=== PATIENT | female | born 1930 | race Caucasian/White ===

== ENCOUNTER 2019-04-17 11:24 | Emergency (ER) | payer OTHER, BC ==
[2019-04-17 11:52] VITALS: TEMP 98.2; BMI 19.1
--- NOTE | 2019-04-17 12:00 | PDOC ---
History of Present Illness - General Chief Complaint: Weakness Stated Complaint: WEAKNESS Time Seen by Provider: 04/17/19 11:59 History Source: [facility] Records - History of Present Illness Initial Comments: 04/17/19 15:29 89 y/o woman with hx dementia transferred from [address] [place] [address] [facility] after her nurse found her having difficulty ambulating today, different than her baseline. She is unable to provide history due to dementia - difficulty finding words or formulating thoughts. She is unable to report why she is in the ED (or where her current location is). She denies any pain anywhere. Past History - Past Medical History Allergies/Adverse Reactions: Allergies Allergy/AdvReac Type Severity Reaction Status Date / Time No Known Allergies Allergy Verified 04/17/19 11:44 Home Medications: Ambulatory Orders Ascorbate Calcium [Vitamin C] 1,000 mg PO DAILY 04/17/19 Cyanocobalamin (Vitamin B-12) [Vitamin B12] 1,000 mcg PO DAILY 04/17/19 Vitamin E 400 unit PO DAILY 04/17/19 Cancer: Yes (basal cell carcinoma) COPD: No Dementia: Yes Psychiatric Problems: (cognitive decline) Seizures: Yes (hyperparathyroidsm) Other medical history: Hypercalcemia - Suicide/Smoking/Psychosocial Hx Smoking History: Never smoked Information on smoking cessation initiated: No Hx Alcohol Use: No Drug/Substance Use Hx: No Review of Systems - Review of Systems Able to Perform ROS?: No (Dementia) *Physical Exam - Vital Signs Last Vital Signs Temp Pulse Resp BP Pulse Ox 98.2 F 97 H 18 166/87 98 04/17/19 11:39 04/17/19 11:39 04/17/19 11:39 04/17/19 11:39 04/17/19 11:50 - Physical Exam Comments: 04/17/19 15:24 PE: GENERAL: Awake, anxious, confused, disoriented to place, time. HEAD: No signs of trauma, normocephalic, atraumatic EYES: PERRLA, EOMI, sclera anicteric, conjunctiva clear ENT: Auricles normal inspection, hearing grossly normal, nares patent, oropharynx clear without exudates. Moist mucosa NECK: Normal ROM, supple, no lymphadenopathy, JVD, or masses LUNGS: No distress, speaks full sentences, clear to auscultation bilaterally HEART: Regular rate and rhythm, normal S1 and S2, no murmurs, rubs or gallops, peripheral pulses normal and equal bilaterally. ABDOMEN: Soft, nontender, normoactive bowel sounds. No guarding, no rebound. No masses EXTREMITIES : Normal inspection, Normal range of motion, no edema. No clubbing or cyanosis SKIN: Warm, Dry, normal turgor, no rashes or lesions noted ED Treatment Course - LABORATORY CBC & Chemistry Diagram: 04/17/19 12:40 04/17/19 15:28 Medical Decision Making - Medical Decision Making 89 F with hx dementia transferred from [facility] due to difficulty ambulating worse than baseline, unable to obtain hx from patient due to dementia. Plan for infectious workup, likely admit if cannot ambulate. Plan: CBC CMP UA Urine culture CXR EKG CT Head 04/17/19 12:32 POC glu - 119 --- Case discussed with nurse at [facility] facility. Per nurse, she was unable to ambulate today which was not her norm. No falls or head trauma. Baseline mental status of confusion, normally able to hold conversation but word finding difficulty with anxiety. Plan for CT head, CT neck deferred given lack of traumatic mechanism. 04/17/19 16:57 CT negative for acute process Labs wnl, UA negative, no leukocytosis, no anemia, CXR normal Trial of ambulation - able to walk up/down room with assistance. Plan for repeat vitals, discharge back to [facility]. *DC/Admit/Observation/Transfer Diagnosis at time of Disposition: Unable to ambulate - Discharge Dispostion Disposition: HOME Condition at time of disposition: Stable Decision to Admit order: Yes - Referrals Referrals: Gianluca Briones MD [Primary Care Provider] - - Patient Instructions Printed Discharge Instructions: How to Choose and Use a Walker, Dementia Additional Instructions: You were seen in the emergency department because you were having difficulty walking. We checked your blood work, your urine, and did a CT scan of your head , which all returned normal. We monitored you in the Emergency Department, and after rest you were able to walk here in the Emergency Department. Please follow up with your primary care doctor as soon as possible, in the next seven days. Please return to the Emergency Department if you develop fevers, chills, severe nausea and vomiting, chest pain, or trouble breathing. - Post Discharge Activity
--- NOTE | 2019-04-17 12:52 | PDOC ---
Attending Attestation - Resident Resident Name: Jamari Christianson - ED Attending Attestation I have performed the following: I have examined & evaluated the patient, The case was reviewed & discussed with the resident, I agree w/resident's findings & plan, Exceptions are as noted - HPI HPI: 04/17/19 12:47 89yo F hx dementia, hyperparathyroidism presents to the ED with generalized weakness from [address] [place] [address]. History from staff at [facility]. Pt unable to ambulate but typically can ambulate with one person assistance. Otherwise, they deny any recent f/c, complaints of cp, sob, abd pain, dizziness, N/V/D, urinary sxs. Pt has not had any recent falls. History from pt limited due to dementia, pt denies all medical complaints. - Physicial Exam PE: 04/17/19 12:51 GENERAL: Awake, alert, AOx0 (states full name is Z), in no acute distress HEAD: No signs of trauma EYES: PERRLA, EOMI, sclera anicteric, conjunctiva clear ENT: Auricles normal inspection, hearing grossly normal, nares patent, oropharynx clear without exudates. Moist mucosa NECK: Normal ROM, supple, no lymphadenopathy, JVD, or masses LUNGS: Breath sounds equal, clear to auscultation bilaterally. No wheezes, and no crackles HEART: Regular rate and rhythm, normal S1 and S2, no murmurs, rubs or gallops ABDOMEN: Soft, nontender, normoactive bowel sounds. No guarding, no rebound. No masses EXTREMITIES: Normal range of motion, no edema. No clubbing or cyanosis. No cords, erythema, or tenderness NEUROLOGICAL: Normal speech, cranial nerves intact, 5/5 strength in all 4 extremities, normal sensation to light touch in all 4 extremities, normal cerebellar exam, normal gait, normal reflexes and tone SKIN: Warm, Dry, normal turgor, no rashes or lesions noted. - Medical Decision Making 04/17/19 14:21 89yo F Hx dementia and hyperparathyroidism presents to the ED with generalized weakness Vitals with elevated BP, pt with no hx HTN DDx includes infection vs metabolic disarray vs ischemia vs neurologic event Plan for labs, UA, CTH, dispo 04/17/19 17:00 Entire w/u including labs, UA, CXR, CTH negative Pt continues to deny complaints She is able to ambulate in ED with 1 person assistance which is her baseline BP has decreased to 140s/150s systolic w/o intervention She is clinically stable for DC back to [facility] Heart Score/ECG Review #1 04/17/19 14:19 EKG read and int by me: Sinus rhythm, 1st degree block. LAD. No LINDSEY or TWI.
[2019-04-17 12:58] LABS: BASO % 1.1 % (0-2.0); EOS % 2.6 % (0-4.5); HEMATOCRIT 36.3 % (32.4-45.2); HEMOGLOBIN 12.3 GM/dL (10.7-15.3); LYMPH % 12.7 % (8-40); MCH 34.1 pg (25.7-33.7); MEAN CELL VOLUME 100.3 fl (80-96); MEAN PLT VOLUME 6.6 fl (7.5-11.1); MONO % 11.6 % (3.8-10.2); PLATELET COUNT 325 K/MM3 (134-434); RBC 3.62 M/mm3 (3.60-5.2); RDW 14.4 % (11.6-15.6); WHITE BLOOD COUNT 8.6 K/mm3 (4.0-10.0)
--- NOTE | 2019-04-17 14:52 | EKG ---
Test Reason : Blood Pressure : / mmHG Vent. Rate : 096 BPM Atrial Rate : 096 BPM P-R Int : 222 ms QRS Dur : 088 ms QT Int : 374 ms P-R-T Axes : 076 -30 047 degrees QTc Int : 472 ms SINUS RHYTHM WITH 1ST DEGREE A-V BLOCK LEFT ATRIAL ENLARGEMENT LEFT AXIS DEVIATION POSSIBLE ANTERIOR INFARCT , AGE UNDETERMINED ABNORMAL ECG NO PREVIOUS ECGS AVAILABLE Confirmed by MD FER, LATOYA ([id number]) on 04/17/2019 2:52:30 PM Referred By: Confirmed By:LATOYA MONROE MD
[2019-04-17 16:01] LABS: PH,URINE 7.5 (5.0-8.0); URINE APPEARANCE CLEAR; URINE BILIRUBIN NEGATIVE (NEGATIVE); URINE COLOR YELLOW; URINE GLUCOSE (UA) NEGATIVE (NEGATIVE); URINE KETONE NEGATIVE (NEGATIVE); URINE LEUK ESTERASE NEGATIVE (NEGATIVE); URINE NITRITE NEGATIVE (NEGATIVE); URINE PROTEIN NEGATIVE (NEGATIVE)
[2019-04-17 16:03] LABS: ALBUMIN 3.6 g/dl (3.4-5.0); BILIRUBIN,TOTAL 0.7 mg/dL (0.2-1); BLOOD UREA NITROGEN 8.6 mg/dL (7-18); CALCIUM 11.3 mg/dL (8.5-10.1); CREATININE 0.6 mg/dL (0.55-1.3); POTASSIUM 3.4 mmol/L (3.5-5.1); TOT PROT 6.8 g/dl (6.4-8.2)
[2019-04-17] MEDS ORDERED: VALSARTAN 40 MG TABLET (FP) PO ONE (19:56)
[2019-04-17] MEDS ORDERED: NITROGLYCERIN SUBLINGUAL 1/150 0.4 MG TAB SL ONE (20:05)
--- NOTE | 2019-04-17 20:16 | PDOC ---
*Physical Exam - Vital Signs Last Vital Signs Temp Pulse Resp BP Pulse Ox 98.2 F 90 18 146/104 H 97 04/17/19 11:39 04/17/19 17:05 04/17/19 17:05 04/17/19 17:05 04/17/19 17:05 - Physical Exam General Appearance: Yes: Nourished. 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 NML intact, Fully Oriented, Alert, Normal Mood/ Affect ED Treatment Course - LABORATORY CBC & Chemistry Diagram: 04/17/19 12:40 04/17/19 15:28 - ADDITIONAL ORDERS Additional order review: Laboratory Results 04/17/19 04/17/19 04/17/19 15:50 15:28 12:40 Sodium 140 Cancelled Potassium 3.4 L Cancelled Chloride 101 Cancelled Carbon Dioxide 35 H Cancelled Anion Gap 5 L Cancelled BUN 8.6 Cancelled Creatinine 0.6 Cancelled Est GFR (CKD-EPI)AfAm 94.32 Cancelled Est GFR (CKD-EPI)NonAf 81.38 Cancelled POC Glucometer Random Glucose 104 Cancelled Calcium 11.3 H Cancelled Total Bilirubin 0.7 Cancelled AST 17 Cancelled ALT 19 Cancelled Alkaline Phosphatase 137 H Cancelled Creatine Kinase Troponin I Total Protein 6.8 Cancelled Albumin 3.6 Cancelled Urine Color Yellow Urine Appearance Clear Urine pH 7.5 Ur Specific [place] 1.011 Urine Protein Negative Urine Glucose (UA) Negative Urine Ketones Negative Urine Blood Negative Urine Nitrite Negative Urine Bilirubin Negative Urine Urobilinogen 1.0 Ur Leukocyte Esterase Negative 04/17/19 04/17/19 12:40 12:29 Sodium Potassium Chloride Carbon Dioxide Anion Gap BUN Creatinine Est GFR (CKD-EPI)AfAm Est GFR (CKD-EPI)NonAf POC Glucometer 119 Random Glucose Calcium Total Bilirubin AST ALT Alkaline Phosphatase Creatine Kinase 28 Troponin I < 0.02 Total Protein Albumin Urine Color Urine Appearance Urine pH Ur Specific [place] Urine Protein Urine Glucose (UA) Urine Ketones Urine Blood Urine Nitrite Urine Bilirubin Urine Urobilinogen Ur Leukocyte Esterase 04/17/19 04/17/19 12:40 12:29 RBC 3.62 MCV 100.3 H MCHC 34.0 RDW 14.4 MPV 6.6 L Neutrophils % 72.0 Lymphocytes % 12.7 Monocytes % 11.6 H Eosinophils % 2.6 Basophils % 1.1 POC Glucometer 119 - RADIOLOGY Radiology Studies Ordered: Category Date Time Status CHEST X-RAY PORTABLE* [RAD] Stat Radiology 04/17/19 20:11 Ordered - Medications Given in the ED: ED Medications Discontinued Medications Generic Name Dose Route Start Last Admin Trade Name Freq PRN Reason Stop Dose Admin Valsartan 40 mg 04/17/19 19:56 04/17/19 20:13 Diovan - PO 04/17/19 19:57 40 mg ONCE ONE Administration Medical Decision Making - Medical Decision Making 04/17/19 20:14 Pt awaiting to go to the [facility] and she was found to have BP bilaterally of 200/100 ; pt will get an EKG and I will treat with diovan and she will be reassessed. 04/17/19 22:10 Pt was fed dinner and she is feeling better; diovan and percocet and SL NTG given BP is under control. She will be sent home with a prescription of diovan. *DC/Admit/Observation/Transfer Diagnosis at time of Disposition: Unable to ambulate - Discharge Dispostion Disposition: [facility] Condition at time of disposition: Stable - Referrals Referrals: Gianluca Briones MD [Primary Care Provider] - - Patient Instructions Printed Discharge Instructions: How to Choose and Use a Walker, Dementia Additional Instructions: You were seen in the emergency department because you were having difficulty walking. We checked your blood work, your urine, and did a CT scan of your head , which all returned normal. We monitored you in the Emergency Department, and after rest you were able to walk here in the Emergency Department. Please follow up with your primary care doctor as soon as possible, in the next seven days. Please return to the Emergency Department if you develop fevers, chills, severe nausea and vomiting, chest pain, or trouble breathing. - Post Discharge Activity
[2019-04-17] MEDS ORDERED: NITROGLYCERIN SUBLINGUAL 1/150 0.4 MG TAB ONE (20:37)
[2019-04-17 21:23] VITALS: BP 138/78; PULSE 80
--- NOTE | 2019-04-18 16:58 | EKG ---
Test Reason : Blood Pressure : / mmHG Vent. Rate : 106 BPM Atrial Rate : 106 BPM P-R Int : 178 ms QRS Dur : 082 ms QT Int : 358 ms P-R-T Axes : 061 -16 052 degrees QTc Int : 475 ms SINUS TACHYCARDIA BIATRIAL ENLARGEMENT BORDERLINE ECG WHEN COMPARED WITH ECG OF 17-APR-2019 11:36, ME INTERVAL HAS DECREASED Confirmed by MD FER, LATOYA ([id number]) on 04/18/2019 4:58:14 PM Referred By: Confirmed By:LATOYA MONROE MD
== END 2019-04-18 01:37 ==
LOC: JER 11:24
DX: R26.2 Difficulty in walking, not elsewhere classified (principal); E21.3 Hyperparathyroidism, unspecified; Z85.828 Personal history of other malignant neoplasm of skin
CPT/HCPCS: 36415; 70450-TC; 71045-TC-FY; 80053; 81003; 82550; 82962; 84484; 85025; 87086; 93005; 93010; 99285-25

== ENCOUNTER 2019-04-18 09:00 | Inpatient (IN) | payer OTHER, BC ==
[2019-04-18 10:22] LABS: PH,URINE 6.5 (5.0-8.0); URINE APPEARANCE CLEAR; URINE BILIRUBIN NEGATIVE (NEGATIVE); URINE COLOR YELLOW; URINE GLUCOSE (UA) NEGATIVE (NEGATIVE); URINE KETONE NEGATIVE (NEGATIVE); URINE LEUK ESTERASE NEGATIVE (NEGATIVE); URINE NITRITE NEGATIVE (NEGATIVE); URINE PROTEIN TRACE (NEGATIVE)
[2019-04-18 10:32] LABS: BASO % 0.8 % (0-2.0); EOS % 0.4 % (0-4.5); LYMPH % 12.8 % (8-40); MCH 34.1 pg (25.7-33.7); MCHC 34.2 g/dl (32.0-36.0); MEAN CELL VOLUME 99.8 fl (80-96); MEAN PLT VOLUME 6.9 fl (7.5-11.1); MONO % 9.5 % (3.8-10.2); NEUT % 76.5 % (42.8-82.8); PLATELET COUNT 331 K/MM3 (134-434); RBC 3.81 M/mm3 (3.60-5.2); RDW 14.5 % (11.6-15.6); WHITE BLOOD COUNT 7.5 K/mm3 (4.0-10.0)
[2019-04-18 10:55] LABS: ALBUMIN 3.7 g/dl (3.4-5.0); ALK PHOS 136 U/L (45-117); ANION GAP 6 MMOL/L (8-16); BILIRUBIN,TOTAL 0.8 mg/dL (0.2-1); BLOOD UREA NITROGEN 14.8 mg/dL (7-18); CHLORIDE 99 mmol/L (98-107); CO2 33 mmol/L (21-32); CREATININE 0.8 mg/dL (0.55-1.3); GLUCOSE,RANDOM 111 mg/dL (74-106); MAGNESIUM 2.1 mg/dL (1.8-2.4); N-TERMINAL BNP 272.8 pg/ml (5-450); POTASSIUM 3.9 mmol/L (3.5-5.1); SGOT/AST 24 U/L (15-37); SGPT/ALT 20 U/L (13-61); SODIUM 138 mmol/L (136-145); TOT PROT 7.3 g/dl (6.4-8.2)
[2019-04-18] MEDS ORDERED: SODIUM CHLORIDE 0.9% 1000 ML INFUS.BAG IV ONE (11:01)
--- NOTE | 2019-04-18 11:49 | PDOC ---
Documentation entered by Bobby Bragg SCRIBE, acting as scribe for Dayton Gregg MD. Dayton Gregg MD: This documentation has been prepared by the Yemi harp Daniel, SCRIBE, under my direction and personally reviewed by me in its entirety. I confirm that the documentation accurately reflects all work, treatment, procedures, and medical decision making performed by me. History of Present Illness - General Chief Complaint: Injury Stated Complaint: AMS Time Seen by Provider: 04/18/19 09:18 History Source: Patient, EMS Exam Limitations: No Limitations - History of Present Illness Initial Comments: 04/18/19 09:43 The patient is an 89 year old female with a past medical history of dementia and hyperparathyroidism brought in today by EMS from [facility] for evaluation of unwitnessed fall. The patient was seen in the ER yesterday for generalized weakness, had a negative work up, and was discharged back [facility]. Patient was found this morning at the foot of her bed after an unwitnessed fall and unknown loss of consciousness. Patient has no complaints currently but history is limited due to dementia. Patient aware that she fell but unable to state how or why. Denies fevers, chills, cp, sob, headache, dizziness, abd pain, N/V/D, urinary sxs. Allergies: NKA PCP: Gianluca Briones Past History - Past Medical History Allergies/Adverse Reactions: Allergies Allergy/AdvReac Type Severity Reaction Status Date / Time No Known Allergies Allergy Verified 04/17/19 11:44 Home Medications: Ambulatory Orders Ascorbate Calcium [Vitamin C] 1,000 mg PO DAILY 04/17/19 Cyanocobalamin (Vitamin B-12) [Vitamin B12] 1,000 mcg PO DAILY 04/17/19 Vitamin E 400 unit PO DAILY 04/17/19 Cancer: Yes (basal cell carcinoma) COPD: No Dementia: Yes Psychiatric Problems: (cognitive decline) Seizures: Yes (hyperparathyroidsm) - Suicide/Smoking/Psychosocial Hx Smoking History: Unknown if ever smoked Hx Alcohol Use: No Drug/Substance Use Hx: No Review of Systems - Review of Systems Able to Perform ROS?: No Comments:: 04/18/19 09:43 Limited due to dementia. *Physical Exam - Vital Signs Last Vital Signs Temp Pulse Resp BP Pulse Ox 98.4 F 88 18 165/103 H 95 04/18/19 09:15 04/18/19 09:15 04/18/19 09:15 04/18/19 09:15 04/18/19 09:15 - Physical Exam Comments: 04/18/19 11:10 GENERAL: Lethargic but arousable and oriented to person, in no acute distress HEAD: No signs of trauma EYES: PERRLA, EOMI, sclera anicteric, conjunctiva clear ENT: Auricles normal inspection, hearing grossly normal, nares patent, oropharynx clear without exudates. Moist mucosa NECK: Normal ROM, supple, no lymphadenopathy, JVD, or masses LUNGS: Breath sounds equal, clear to auscultation bilaterally. No wheezes, and no crackles HEART: Regular rate and rhythm, normal S1 and S2, no murmurs, rubs or gallops ABDOMEN: +distended. Nontender, normoactive bowel sounds. No guarding, no rebound. No masses EXTREMITIES: Normal range of motion, no edema. No clubbing or cyanosis. No cords , erythema, or tenderness BACK: No midline spinal tenderness in cervical/thoracic/lumbar region NEUROLOGICAL: Normal speech, cranial nerves intact, 5/5 strength in all 4 extremities, normal sensation to light touch in all 4 extremities, normal cerebellar exam, unable to gait SKIN: Warm, Dry, normal turgor, no rashes or lesions noted. Heart Score/ECG Review #1 04/18/19 11:26 EKG read and int by me: NSR, rate 90, nrml axis and intervals. no darvin or twi ED Treatment Course - LABORATORY CBC & Chemistry Diagram: 04/18/19 10:00 04/18/19 10:00 - ADDITIONAL ORDERS Additional order review: Laboratory Results 04/18/19 04/18/19 10:00 09:45 Sodium 138 Potassium 3.9 Chloride 99 Carbon Dioxide 33 H Anion Gap 6 L BUN 14.8 Creatinine 0.8 Est GFR (CKD-EPI)AfAm 76.29 Est GFR (CKD-EPI)NonAf 65.82 Random Glucose 111 H Calcium 11.0 H Magnesium 2.1 Total Bilirubin 0.8 AST 24 ALT 20 Alkaline Phosphatase 136 H Troponin I < 0.02 B-Natriuretic Peptide 272.8 Total Protein 7.3 Albumin 3.7 Urine Color Yellow Urine Appearance Clear Urine pH 6.5 Ur Specific [place] 1.014 Urine Protein Trace Urine Glucose (UA) Negative Urine Ketones Negative Urine Blood Negative Urine Nitrite Negative Urine Bilirubin Negative Urine Urobilinogen 1.0 Ur Leukocyte Esterase Negative 04/18/19 10:00 RBC 3.81 MCV 99.8 H MCHC 34.2 RDW 14.5 MPV 6.9 L Neutrophils % 76.5 Lymphocytes % 12.8 Monocytes % 9.5 Eosinophils % 0.4 D Basophils % 0.8 - RADIOLOGY Radiology Studies Ordered: Category Date Time Status ABDOMEN & PELVIS CT WITH CONTR [CT] Stat CT Scan 04/18/19 11:10 Ordered CHEST X-RAY PORTABLE* [RAD] Stat Radiology 04/18/19 09:37 Completed PELVIS [RAD] Stat Radiology 04/18/19 09:37 Completed Medical Decision Making - Medical Decision Making 04/18/19 11:46 89yo F presents to the ED for the second time in 2 days, yesterday with generalized weaknes, today after an unwitnessed fall Labs today with mild hypercalcemia -> ordered fluid bolus CXR with possible ileus CTH, C-spine, pelvis film negative Given mild distension on exam, and ileus on CXR, ordered CTAP for further evaluation Anticipate admission 04/18/19 15:29 W/U negative Case discussed with Dr. Nuñez, pt accepted for admission to Dr. Johnston Case discussed in detail with admitting physician including history, physical exam and ancillary studies. Admitting physician has assumed care for the patient, will follow all pending diagnostics and will complete the evaluation and treatment. *DC/Admit/Observation/Transfer Diagnosis at time of Disposition: Weakness - Discharge Dispostion Condition at time of disposition: Stable Decision to Admit order Date/Time: Decision to Admit Order Category Date Time Status Decision to Admit to Hospital Routine Admission 04/18/19 09:37 Active - Referrals Referrals: Gianluca Briones MD [Primary Care Provider] - - Patient Instructions - Post Discharge Activity - Attestations Physician Attestion: 04/18/19 15:31 I, Dr. Dayton Gregg MD, attest that this document has been prepared under my direction and personally reviewed by me in its entirety. I further attest, that it accurately reflects all work, treatment, procedures and medical decision -making performed by me.
--- NOTE | 2019-04-18 16:42 | EKG ---
Test Reason : Blood Pressure : / mmHG Vent. Rate : 090 BPM Atrial Rate : 090 BPM P-R Int : 198 ms QRS Dur : 082 ms QT Int : 370 ms P-R-T Axes : 064 002 056 degrees QTc Int : 452 ms NORMAL SINUS RHYTHM BIATRIAL ENLARGEMENT ABNORMAL ECG WHEN COMPARED WITH ECG OF 17-APR-2019 20:41, NO SIGNIFICANT CHANGE WAS FOUND Confirmed by MD FER, LATOYA ([id number]) on 04/18/2019 4:41:44 PM Referred By: Confirmed By:LATOYA MONROE MD
--- NOTE | 2019-04-18 16:53 | HP ---
CHIEF COMPLAINT: syncopal episode, unwitnessed PCP: Gianluca Briones HISTORY OF PRESENT ILLNESS: Ms. Hernández is an 89 year old woman with a pmhx of parahyperthyroidism and dementia who presents to the ED from her assisted living facility s/p unwitnessed fall. It is unknown whether the patient lost consciousness and the patient is a poor historian. Per [facility] assisted living facility, the patient previously had a wrist fracture for which she was hospitalized. She was sent to rehab after the fracture and then was transferred to them. Previously she had been living on her own. They state that she has no family, but according to the patient's friends she does not take any medications. Per the patient she does not have any medical history and only takes supplements. The patient is, however, only alert and oriented to self and has difficulty recalling where she is, why she was brought to the hospital, where she lives, the date etc. The patient denies feeling dizzy, fainting, losing consciousness, or falling. Per her assisted living facility, she has been unsteady for a while and seeing PT but does not yet have a walker. They state that when they found her she was bracing/ holding her R leg but did not complain of any pain. ER course was notable for: (1) EKG with NSR, no ST elevations or Twave inversions (2) UA negative (3) Head CT, cervical spine CT, CXR, hip/ pelvis XR > no acute pathology or fractures, Abd/ pelvis CT> distended loops of bowel with colonic wall thickening. Recent Travel: denies PAST MEDICAL HISTORY: dementia, parahyperthyroidism PAST SURGICAL HISTORY: patient denies but has surgical scar on R wrist, per [facility] she had R wrist fx Social History: Smoking: denies Alcohol: denies Drugs: denies Family History: none reported Allergies No Known Allergies Allergy (Verified 04/17/19 11:44) HOME MEDICATIONS: Home Medications Medication Instructions Recorded Ascorbate Calcium [Vitamin C] 1,000 mg PO DAILY 04/17/19 Cyanocobalamin (Vitamin B-12) 1,000 mcg PO DAILY 04/17/19 [Vitamin B12] Vitamin E 400 unit PO DAILY 04/17/19 REVIEW OF SYSTEMS - Denies any symptoms on ROS CONSTITUTIONAL: Absent: fever, chills, diaphoresis, generalized weakness, malaise, loss of appetite, weight change HEENT: Absent: rhinorrhea, nasal congestion, throat pain, throat swelling, difficulty swallowing, mouth swelling, ear pain, eye pain, visual changes CARDIOVASCULAR: Absent: chest pain, syncope, palpitations, irregular heart rate, lightheadedness , peripheral edema RESPIRATORY: Absent: cough, shortness of breath, dyspnea with exertion, orthopnea, wheezing, stridor, hemoptysis GASTROINTESTINAL: Absent: abdominal pain, abdominal distension, nausea, vomiting, diarrhea, constipation, melena, hematochezia GENITOURINARY: Absent: dysuria, frequency, urgency, hesitancy, hematuria, flank pain, genital pain MUSCULOSKELETAL: Absent: myalgia, arthralgia, joint swelling, back pain, neck pain SKIN: Absent: rash, itching, pallor HEMATOLOGIC/IMMUNOLOGIC: Absent: easy bleeding, easy bruising, lymphadenopathy, frequent infections ENDOCRINE: Absent: unexplained weight gain, unexplained weight loss, heat intolerance, cold intolerance NEUROLOGIC: Absent: headache, focal weakness or paresthesias, dizziness, unsteady gait, seizure, mental status changes, bladder or bowel incontinence PSYCHIATRIC: Absent: anxiety, depression, suicidal or homicidal ideation, hallucinations. PHYSICAL EXAMINATION Vital Signs - 24 hr 04/18/19 04/18/19 04/18/19 09:15 12:49 16:10 Temperature 98.4 F 98 F 97.8 F Pulse Rate 88 Pulse Rate [ 94 H 82 Apical] Respiratory 18 18 18 Rate Blood Pressure 165/103 H Blood Pressure 154/89 158/89 [Left Arm] O2 Sat by Pulse 95 95 98 Oximetry (%) GENERAL: Awake, alert, oriented only to self, comfortable without signs of trauma HEAD: Normal with no signs of trauma. EYES: Pupils equal, round and reactive to light, extraocular movements intact, sclera anicteric, conjunctiva clear. No lid lag. EARS, NOSE, THROAT: Ears normal, nares patent, oropharynx clear without exudates. Dry mucous membranes. NECK: Normal range of motion, supple without lymphadenopathy, JVD, or masses. LUNGS: Breath sounds equal, clear to auscultation bilaterally. No wheezes, and no crackles. No accessory muscle use. HEART: Regular rate and rhythm, normal S1 and S2 without murmur, rub or gallop. ABDOMEN: Soft, nontender, mildly distended, normoactive bowel sounds, no guarding, no rebound, no masses. MUSCULOSKELETAL: Normal range of motion at all joints. No bony deformities or tenderness. UPPER EXTREMITIES: 2+ pulses, warm, well-perfused. No cyanosis. No clubbing. No peripheral edema. LOWER EXTREMITIES: 2+ pulses, warm, well-perfused. No calf tenderness. No peripheral edema. NEUROLOGICAL: Cranial nerves II-XII intact. Normal speech. Gait not observed. Bilateral arm tremor noted with arms outstretched, worse with intentional movement, not present at rest. 4/5 strength throughout upper and lower extremities. PSYCHIATRIC: Cooperative. Good eye contact. Appropriate mood and affect. SKIN: Warm, dry, normal turgor, no rashes or lesions noted, normal capillary refill. Laboratory Results - last 24 hr 04/18/19 04/18/19 04/18/19 09:45 10:00 10:00 WBC 7.5 RBC 3.81 Hgb 13.0 Hct 38.0 MCV 99.8 H MCH 34.1 H MCHC 34.2 RDW 14.5 Plt Count 331 MPV 6.9 L Absolute Neuts (auto) 5.8 Neutrophils % 76.5 Lymphocytes % 12.8 Monocytes % 9.5 Eosinophils % 0.4 D Basophils % 0.8 Nucleated RBC % 0 Sodium 138 Potassium 3.9 Chloride 99 Carbon Dioxide 33 H Anion Gap 6 L BUN 14.8 Creatinine 0.8 Est GFR (CKD-EPI)AfAm 76.29 Est GFR (CKD-EPI)NonAf 65.82 Random Glucose 111 H Calcium 11.0 H Magnesium 2.1 Total Bilirubin 0.8 AST 24 ALT 20 Alkaline Phosphatase 136 H Troponin I < 0.02 B-Natriuretic Peptide 272.8 Total Protein 7.3 Albumin 3.7 Urine Color Yellow Urine Appearance Clear Urine pH 6.5 Ur Specific Isom 1.014 Urine Protein Trace Urine Glucose (UA) Negative Urine Ketones Negative Urine Blood Negative Urine Nitrite Negative Urine Bilirubin Negative Urine Urobilinogen 1.0 Ur Leukocyte Esterase Negative ASSESSMENT/PLAN: drake Hernández is an 89 year old woman with a pmhx of parahyperthyroidism and dementia who presents to the ED from her assisted living facility s/p unwitnessed fall, she is being admitted for syncopal workup. # Syncope- EKG unremarkable, troponin's negative, imaging without any evidence of acute pathology (CT head without infarct or bleed, no fracture of hip or spine) - admit to tele for cardiac monitoring, patient does not have history of afib or arrhythmias however medical record is sparse and inconsistent as patient is poor historian - F/U repeat troponins - Echo - Carotid doppler study - Orthostatic BPs - Gentle hydration with NS @ 42cc/hr -PT consult #FEN NS @42cc/hr Replete lytes PRN Regular Diet #Dispo - pending cardiac workup, PT assessment, will likely need walker when she returns to assisted living facility Visit type - Emergency Visit Emergency Visit: Yes ED Registration Date: 04/18/19 Care time: The patient presented to the Emergency Department on the above date and was hospitalized for further evaluation of their emergent condition. - New Patient This patient is new to me today: Yes Date on this admission: 04/18/19 - Critical Care Critical Care patient: No ATTENDING PHYSICIAN STATEMENT I saw and evaluated the patient. I reviewed the resident's note and discussed the case with the resident. I agree with the resident's findings and plan as documented. SUBJECTIVE: OBJECTIVE: ASSESSMENT AND PLAN:
--- NOTE | 2019-04-18 18:24 | PN ---
Teaching Attending Note Name of Resident: Flor Singh ATTENDING PHYSICIAN STATEMENT I saw and evaluated the patient. I reviewed the resident's note and discussed the case with the resident. I agree with the resident's findings and plan as documented. SUBJECTIVE: Patient is an 89 year old female with a pmhx of parahyperthyroidism and dementia with hx of wrist fx who presents to the ED from her assisted [facility] facility [facility] s/p unwitnessed fall) patient is a poor historian , does not know what happened. As per [facility] patient has been living in their facility for around 2 months. OBJECTIVE: Vital Signs Temperature 97.8 F 04/18/19 16:10 Pulse Rate 82 04/18/19 16:10 Respiratory Rate 18 04/18/19 16:10 Blood Pressure 158/89 04/18/19 16:10 O2 Sat by Pulse Oximetry (%) 98 04/18/19 16:10 GENERAL: The patient is awake, oriented to self only , in no acute distress. HEAD: Normal with no signs of trauma. EYES: PERRL, extraocular movements intact, sclera anicteric, conjunctiva clear. ENT: Ears normal, oropharynx clear without exudates, moist mucous membranes. NECK: Trachea midline, full range of motion, supple. LUNGS: Breath sounds equal, clear to auscultation bilaterally, no wheezes, no crackles, no accessory muscle use. HEART: Regular rate and rhythm, S1, S2 without murmur, rub or gallop. ABDOMEN: Soft, nontender, nondistended, normoactive bowel sounds, no guarding, no rebound, no hepatosplenomegaly, no masses. EXTREMITIES: 2+ pulses, warm, well-perfused, no edema. NEUROLOGICAL: Cranial nerves II through XII grossly intact. Normal speech, gait not observed. p 5/5 bl PSYCH: Normal mood, normal affect. oriented to self only SKIN: Warm, dry, normal turgor, no rashes or lesions noted CBCD WBC 7.5 K/mm3 (4.0-10.0) 04/18/19 10:00 RBC 3.81 M/mm3 (3.60-5.2) 04/18/19 10:00 Hgb 13.0 GM/dL (10.7-15.3) 04/18/19 10:00 Hct 38.0 % (32.4-45.2) 04/18/19 10:00 MCV 99.8 fl (80-96) H 04/18/19 10:00 MCHC 34.2 g/dl (32.0-36.0) 04/18/19 10:00 RDW 14.5 % (11.6-15.6) 04/18/19 10:00 Plt Count 331 K/MM3 (134-434) 04/18/19 10:00 MPV 6.9 fl (7.5-11.1) L 04/18/19 10:00 CMP Sodium 138 mmol/L (136-145) 04/18/19 10:00 Potassium 3.9 mmol/L (3.5-5.1) 04/18/19 10:00 Chloride 99 mmol/L (98-107) 04/18/19 10:00 Carbon Dioxide 33 mmol/L (21-32) H 04/18/19 10:00 Anion Gap 6 MMOL/L (8-16) L 04/18/19 10:00 BUN 14.8 mg/dL (7-18) 04/18/19 10:00 Creatinine 0.8 mg/dL (0.55-1.3) 04/18/19 10:00 Random Glucose 111 mg/dL (74-106) H 04/18/19 10:00 Calcium 11.0 mg/dL (8.5-10.1) H 04/18/19 10:00 Total Bilirubin 0.8 mg/dL (0.2-1) 04/18/19 10:00 AST 24 U/L (15-37) 04/18/19 10:00 ALT 20 U/L (13-61) 04/18/19 10:00 Alkaline Phosphatase 136 U/L (45-117) H 04/18/19 10:00 Total Protein 7.3 g/dl (6.4-8.2) 04/18/19 10:00 Albumin 3.7 g/dl (3.4-5.0) 04/18/19 10:00 CARDIAC ENZYMES Troponin I < 0.02 ng/ml (0.00-0.05) 04/18/19 10:00 Current Medications Generic Name Dose Route Start Last Admin Trade Name Freq PRN Reason Stop Dose Admin Heparin Sodium (Porcine) 5,000 unit 04/18/19 22:00 Heparin - SQ TID [facility] Sodium Chloride 1,000 mls @ 42 mls/hr 04/18/19 16:45 Normal Saline - IV ASDIR [facility] Home Medications Medication Instructions Recorded Ascorbate Calcium [Vitamin C] 1,000 mg PO DAILY 04/17/19 Cyanocobalamin (Vitamin B-12) 1,000 mcg PO DAILY 04/17/19 [Vitamin B12] Vitamin E 400 unit PO DAILY 04/17/19 CT abdomen and pelvis: mild to moderate colonic distention . no gross obstruction, questionable mild concentric rectal wall thickening. possible acute proctitis. ASSESSMENT AND PLAN: Patient is 89 year old woman with a pmhx of parahyperthyroidism and dementia , wrist fx who presents to the ED from her assisted living facility s/p unwitnessed fall, she is being admitted for syncopal workup. # Syncope r/o acs , carotids, ekg, Ct of the head neg, no infarct or bleed. observe in tele , orthostatics , r/o uTI , patient is oriented to self only # Acute Hypercalcemia with hx of Hyperparathyroidism , gentle hydration # Htn Uncontrolled will monitor # Elevated MCV, will order, TSH,Ft4,Ft3, b12, folic acid. PT evaluation DVt px: heparin sq
[2019-04-18 18:26] VITALS: BMI 16.6
[2019-04-18] MEDS: SODIUM CHLORIDE 1,000 ML IV SCH (22:12)
[2019-04-18] MEDS: HEPARIN NA (PORCINE) 5,000 UNITS/ML 1ML VIAL SQ SCH (22:12)
[2019-04-19] MEDS: HEPARIN NA (PORCINE) 5,000 UNITS/ML 1ML VIAL SQ SCH ×3 (06:34→21:25)
[2019-04-19 06:55] LABS: BASO % 1.3 % (0-2.0); EOS % 3.8 % (0-4.5); HEMATOCRIT 34.5 % (32.4-45.2); HEMOGLOBIN 11.6 GM/dL (10.7-15.3); LYMPH % 26.7 % (8-40); MCH 34.2 pg (25.7-33.7); MCHC 33.7 g/dl (32.0-36.0); MEAN CELL VOLUME 101.4 fl (80-96); MEAN PLT VOLUME 7.2 fl (7.5-11.1); MONO % 11.8 % (3.8-10.2); NEUT % 56.4 % (42.8-82.8); PLATELET COUNT 306 K/MM3 (134-434); RDW 14.1 % (11.6-15.6); WHITE BLOOD COUNT 6.2 K/mm3 (4.0-10.0)
[2019-04-19 07:49] LABS: ALBUMIN 3.3 g/dl (3.4-5.0); BILIRUBIN,TOTAL 0.7 mg/dL (0.2-1); BLOOD UREA NITROGEN 19.3 mg/dL (7-18); CALCIUM 10.9 mg/dL (8.5-10.1); CREATININE 0.9 mg/dL (0.55-1.3); MAGNESIUM 2.1 mg/dL (1.8-2.4); PHOSPHOROUS 2.6 mg/dL (2.5-4.9); POTASSIUM 3.3 mmol/L (3.5-5.1); TOT PROT 6.3 g/dl (6.4-8.2)
--- NOTE | 2019-04-19 08:54 | CON.CARD ---
Consult Consult Specialty:: cardio - History of Present Illness Chief Complaint: fall History of Present Illness: 89 F found on floor. dementia confounds history--unknown mechanism, unknown if fall vs LOC . currently states she cannot recall any of those events. currently denies cp, sob, palpitations, presyncope/LH/dizzy bp elevated, VSs otherwise unremarkable. denies prior h/o hi BP or rec for bp meds by MDs PMH: hyperparathyroid - Alcohol/Substance Use Hx Alcohol Use: No - Smoking History Smoking history: Unknown if ever smoked Home Medications - Allergies Allergies/Adverse Reactions: Allergies Allergy/AdvReac Type Severity Reaction Status Date / Time No Known Allergies Allergy Verified 04/17/19 11:44 - Home Medications Home Medications: Ambulatory Orders Ascorbate Calcium [Vitamin C] 1,000 mg PO DAILY 04/17/19 Cyanocobalamin (Vitamin B-12) [Vitamin B12] 1,000 mcg PO DAILY 04/17/19 Vitamin E 400 unit PO DAILY 04/17/19 Family Disease History - Family Disease History Family History: Denies (no known cmp) Review of Systems - Review of Systems Constitutional: denies: Chills, Fever Eyes: denies: Eye Pain HENT: denies: Nasal Congestion Neck: denies: Stiffness Cardiovascular: denies: Palpitations Respiratory: denies: Orthopnea, PND Gastrointestinal: denies: Diarrhea, Rectal Bleeding Genitourinary: denies: Burning, Hematuria Musculoskeletal: denies: Muscle Pain Integumentary: denies: Rash Neurological: denies: Numbness, Seizure, Syncope Endocrine: denies: Excessive Sweating Hematology/Lymphatic: denies: Excessive Bleeding Vital Signs: Vital Signs Temperature 98.0 F 04/19/19 06:00 Pulse Rate 81 04/19/19 07:29 Respiratory Rate 20 04/19/19 06:00 Blood Pressure 173/60 H 04/19/19 07:29 O2 Sat by Pulse Oximetry (%) 94 L 04/19/19 00:39 Constitutional: Yes: Well Nourished, No Distress Eyes: No: Sclera Icterus HENT: No: Nasal Congestion Neck: No: Decreased ROM Respiratory: Yes: CTA Bilaterally. No: Accessory Muscle Use, Rales, Wheezes Gastrointestinal: Yes: Normal Bowel Sounds. No: Distention, Hepatomegaly, Palpable Mass, Tenderness Cardiovascular: Yes: Regular Rate and Rhythm JVD: No Carotid Bruit: Yes PMI: Non-Displaced Heart Sounds: Yes: S1, S2. No: Gallop Murmur: Yes: Systolic Murmur (2/6 early DAISY lusb). No: Diastolic Murmur Musculoskeletal: Yes: Other (No kyphosis) Extremities: No: Cool, Cyanosis Edema: No Peripheral Pulses: 2+ Left Carotid, 2+ Right Carotid, 2+ Left Doralis Pedis, 2+ Right Dorsalis Pedis Integumentary: No: Jaundice Neurological: Yes: Alert. No: Seizure Psychiatric: No: Agitated - Other Data Labs, Other Data: CBC, BMP 04/19/19 05:15 04/19/19 05:15 Troponin, BNP 04/18/19 04/18/19 10:00 19:05 Troponin I < 0.02 < 0.02 B-Natriuretic Peptide 272.8 Troponin, BNP 04/18/19 04/18/19 10:00 19:05 Troponin I < 0.02 < 0.02 B-Natriuretic Peptide 272.8 Assessment/Plan ECG x3: NSR, RG, no path q's or ischemic ST-T abn CXR: clear lungs/pleura tele: NSR fall vs syncope: -details of history not available sec to dementia -per d/w pmd, she had known fall with wrist frx (? triped on uneven surfact) -CT head no acute findings -trop neg x 2, ecg non-ischemic -supine to seated bp's here: no drop -check orthostatics when/if can stand (ok to do with assistance) -check echo (cardiomegaly reported on CXR, atrial enlargement on ecg) -left carotid bruit likely transmitted from AV area flow murmur. carotid dopplers mild athero, no stenosis -tele monitoring HTN: -per d/w pmd, office bp's 140s-160s/80s-90s, pt has declined meds -sees functional medicine PMD (dr calderon) -will target <160/90 for now, observe trend
[2019-04-19] MEDS ORDERED: POTASSIUM CHLORIDE TABS 20 MEQ TABLET.ER (FP) PO ONE (09:00)
--- NOTE | 2019-04-19 15:01 | ECHO ---
Name: LUIS ANTONIO NANCE Exam:Adult Echocardiogram Study Date: 04/19/2019 11:20 AM Age: 89 yrs Reason For Study: SYNCOPE Height: 60 in Weight: 94 lb BSA: 1.4 m2 MMode/2D Measurements & Calculations IVSd: 0.92 cm Ao root diam: 2.6 cm LVIDd: 2.8 cm LA dimension: 2.5 cm LVIDs: 1.8 cm LVPWd: 1.0 cm LVPWs: 1.0 cm EDV(Teich): 28.3 ml ESV(Teich): 9.5 ml LVOT diam: 1.9 cm RV S Michael: 15.9 cm/sec Doppler Measurements & Calculations MV E max michael: 66.1 cm/sec MVA(VTI): 2.4 cm2 MV A max michael: 132.3 cm/sec MV V2 max: 177.1 cm/sec MV E/A: 0.50 MV max P.6 mmHg MV dec time: 0.18 sec MV V2 mean: 93.4 cm/sec MV mean P.5 mmHg MV V2 VTI: 25.9 cm Ao V2 max: 167.6 cm/sec LV V1 max P.7 mmHg Ao max P.2 mmHg LV V1 mean P.0 mmHg Ao V2 mean: 120.4 cm/sec LV V1 max: 96.3 cm/sec Ao mean P.6 mmHg LV V1 mean: 68.4 cm/sec Ao V2 VTI: 33.7 cm LV V1 VTI: 22.6 cm HAILEE(I,D): 1.9 cm2 HAILEE(V,D): 1.6 cm2 SV(LVOT): 62.7 ml TR max michael: 236.9 cm/sec TR max P.5 mmHg RVSP(TR): 32.5 mmHg PA V2 max: 93.0 cm/sec Med Peak E' Michael: 4.9 cm/sec PA max P.5 mmHg Med E/e': 13.6 Lat Peak E' Michael: 7.0 cm/sec Lat E/e': 9.4 RAP systole: 10.0 mmHg Procedure A complete two-dimensional transthoracic echocardiogram was performed (2D, M-mode, Doppler and color flow Doppler). Technically limited study. Left Ventricle The left ventricle is normal in size. Left ventricular systolic function is normal. Ejection Fraction = 60- 65%. Grade I diastolic dysfunction, (abnormal relaxation pattern). Ratio E/E'= 13. No regional wall m otion abnormalities noted. Right Ventricle The right ventricle is normal size. The right ventricular systolic function is normal. RV systolic TD I is 16 cm/s. Atria The left atrial size is normal. Right atrial size is normal. Mitral Valve There is moderate mitral annular calcification. There is mild mitral regurgitation. Tricuspid Valve The tricuspid valve is normal in structure and function. There is mild to moderate tricuspid regurgit ation. Pulmonary artery systolic pressure is at least 27 mmHg if RA pressure is assumed 3 mmHg. Aortic Valve There is mild aortic sclerosis.;. Trace to mild aortic regurgitation. Pulmonic Valve The pulmonic valve is not well visualized. Great Vessels The aortic root is normal size. Pericardium/Pleura There is no pericardial effusion. Interpretation Summary Technically limited study The left ventricle is normal in size. Left ventricular systolic function is normal. No regional wall motion abnormalities noted. Ejection Fraction = 60-65%. Grade I diastolic dysfunction, (abnormal relaxation pattern). Ratio E/E'= 13 c/w normal filling pressure The right ventricular systolic function is normal. The left atrial size is normal. Right atrial size is normal. There is moderate mitral annular calcification. There is mild mitral regurgitation. There is mild to moderate tricuspid regurgitation. Pulmonary artery systolic pressure is at least 27 mmHg if RA pressure is assumed 3 mmHg There is mild aortic sclerosis. Trace to mild aortic regurgitation. There is no pericardial effusion. Skip Howe MD 04/19/2019 03:00 PM
--- NOTE | 2019-04-19 15:07 | PN ---
Physical Exam: SUBJECTIVE: Patient seen and examined at the bedside, AOX2 to self and reason for hospitalization. The patient is still forgetful and confused. Did not get out of bed, still denies any pain from her fall. OBJECTIVE: Vital Signs Period Temp Pulse Resp BP Sys/Lowe Pulse Ox Last 24 Hr 97.8 F-98.8 F 61-93 16-20 146-187/60-93 94-98 GENERAL: Awake, alert, oriented only to self, comfortable without signs of trauma HEAD: Normal with no signs of trauma. EYES: Pupils equal, round and reactive to light, extraocular movements intact, sclera anicteric, conjunctiva clear. No lid lag. EARS, NOSE, THROAT: Ears normal, nares patent, oropharynx clear without exudates. Dry mucous membranes. NECK: Normal range of motion, supple without lymphadenopathy, JVD, or masses. LUNGS: Breath sounds equal, clear to auscultation bilaterally. No wheezes, and no crackles. No accessory muscle use. HEART: Regular rate and rhythm, normal S1 and S2 without murmur, rub or gallop. ABDOMEN: Soft, nontender, mildly distended, normoactive bowel sounds, no guarding, no rebound, no masses. MUSCULOSKELETAL: Normal range of motion at all joints. No bony deformities or tenderness. UPPER EXTREMITIES: 2+ pulses, warm, well-perfused. No cyanosis. No clubbing. No peripheral edema. LOWER EXTREMITIES: 2+ pulses, warm, well-perfused. No calf tenderness. No peripheral edema. NEUROLOGICAL: Cranial nerves II-XII intact. Normal speech. Gait not observed. Bilateral arm tremor noted with arms outstretched, worse with intentional movement, not present at rest. 4/5 strength throughout upper and lower extremities. PSYCHIATRIC: Cooperative. Good eye contact. Appropriate mood and affect. SKIN: Warm, dry, normal turgor, no rashes or lesions noted, normal capillary refill. Laboratory Results - last 24 hr 04/18/19 04/19/19 04/19/19 19:05 05:15 05:15 WBC 6.2 RBC 3.40 L Hgb 11.6 Hct 34.5 MCV 101.4 H MCH 34.2 H MCHC 33.7 RDW 14.1 Plt Count 306 MPV 7.2 L Absolute Neuts (auto) 3.5 Neutrophils % 56.4 D Lymphocytes % 26.7 D Monocytes % 11.8 H Eosinophils % 3.8 D Basophils % 1.3 Nucleated RBC % 0 Sodium 142 Potassium 3.3 L Chloride 102 Carbon Dioxide 33 H Anion Gap 6 L BUN 19.3 H Creatinine 0.9 Est GFR (CKD-EPI)AfAm 66.16 Est GFR (CKD-EPI)NonAf 57.09 Random Glucose 95 Calcium 10.9 H Phosphorus 2.6 Magnesium 2.1 Total Bilirubin 0.7 AST 19 ALT 16 Alkaline Phosphatase 119 H Troponin I < 0.02 Total Protein 6.3 L Albumin 3.3 L Vitamin B12 617 Serum Folate 20 H TSH 0.91 Free T4 1.11 Active Medications Generic Name Dose Route Start Last Admin Trade Name Freq PRN Reason Stop Dose Admin Heparin Sodium (Porcine) 5,000 unit 04/18/19 22:00 04/19/19 13:14 Heparin - SQ 5,000 unit TID HUSSEIN Administration Sodium Chloride 1,000 mls @ 42 mls/hr 04/18/19 16:45 04/18/19 22:12 Normal Saline - IV 42 mls/hr ASDIR HUSSEIN Administration Metoprolol Tartrate 12.5 mg 04/20/19 10:00 Lopressor - PO DAILY HUSSEIN ASSESSMENT/PLAN: Ms. Hernández is an 89 year old woman with a pmhx of parahyperthyroidism and dementia who presents to the ED from her assisted living facility s/p unwitnessed fall, she is being admitted for syncopal workup. # Syncope- EKG unremarkable, troponin's negativex2, imaging without any evidence of acute pathology (CT head without infarct or bleed, no fracture of hip or spine) - admit to tele for cardiac monitoring, patient does not have history of afib or arrhythmias however medical record is sparse and inconsistent as patient is poor historian -attempted orthostatics today, however unable to complete as patient could not stand, will reattempt tomorrow after PT evaluates her. Supine to sitting, no significant drop in BP - F/U Echo - Carotid doppler study showing mild atherosclerosis without any significant stenosis - Gentle hydration with NS @ 42cc/hr -PT consult -cont tele monitoring #HTN - Pt hypertensive since admission, states she does not take any medications at home - started valsartan 80mg PO daily - will target <160/90 for now, observe trend #FEN NS @42cc/hr Replete lytes PRN Regular Diet #Dispo - pending cardiac workup, PT assessment, will likely need walker when she returns to assisted living facility Visit type - Emergency Visit Emergency Visit: Yes ED Registration Date: 04/18/19 Care time: The patient presented to the Emergency Department on the above date and was hospitalized for further evaluation of their emergent condition. - New Patient This patient is new to me today: No - Critical Care Critical Care patient: No - Discharge Referral Referred to [facility] Med P.C[facility] No ATTENDING PHYSICIAN STATEMENT I saw and evaluated the patient. I reviewed the resident's note and discussed the case with the resident. I agree with the resident's findings and plan as documented. SUBJECTIVE: OBJECTIVE: ASSESSMENT AND PLAN:
[2019-04-19] MEDS ORDERED: METOPROLOL TARTRATE 25 MG TABLET (FP) PO ONE (15:08)
[2019-04-19] MEDS ORDERED: VALSARTAN 80 MG TABLET (UD) PO SCH ×2 (15:15→17:32)
[2019-04-19] MEDS ORDERED: hydrALAZINE HCL 25 MG TABLET (FP) PO ONE (17:31)
[2019-04-19] MEDS ORDERED: hydrALAZINE HCL 25 MG TABLET (FP) PO PRN (17:32)
[2019-04-19] MEDS: SODIUM CHLORIDE 1,000 ML IV SCH (19:26)
[2019-04-19] MEDS ORDERED: amLODIPine BESYLATE 5 MG TABLET (FP) PO SCH (19:45)
--- NOTE | 2019-04-19 21:34 | PN ---
Teaching Attending Note Name of Resident: Flor Singh ATTENDING PHYSICIAN STATEMENT I saw and evaluated the patient. I reviewed the resident's note and discussed the case with the resident. I agree with the resident's findings and plan as documented. SUBJECTIVE: Patient is comfortable but confused. has moderate dementia. OBJECTIVE: Vital Signs Temperature 98.0 F 04/19/19 06:00 Pulse Rate 81 04/19/19 07:29 Respiratory Rate 20 04/19/19 06:00 Blood Pressure 173/60 H 04/19/19 07:29 O2 Sat by Pulse Oximetry (%) 94 L 04/19/19 00:39 GENERAL: The patient is awake, alert, and fully oriented, in no acute distress. HEAD: Normal with no signs of trauma. EYES: PERRL, extraocular movements intact, sclera anicteric, conjunctiva clear. ENT: Ears normal, oropharynx clear without exudates, moist mucous membranes. NECK: Trachea midline, full range of motion, supple. LUNGS: Breath sounds equal, clear to auscultation bilaterally, no wheezes, no crackles, no accessory muscle use. HEART: Regular rate and rhythm, S1, S2 without murmur, rub or gallop. ABDOMEN: Soft, nontender, nondistended, normoactive bowel sounds, no guarding, no rebound, no hepatosplenomegaly, no masses. EXTREMITIES: 2+ pulses, warm, well-perfused, no edema. NEUROLOGICAL: Cranial nerves II through XII grossly intact. Normal speech, gait not observed. PSYCH: Normal mood, normal affect. SKIN: Warm, dry, normal turgor, no rashes or lesions noted CBCD WBC 6.2 K/mm3 (4.0-10.0) 04/19/19 05:15 RBC 3.40 M/mm3 (3.60-5.2) L 04/19/19 05:15 Hgb 11.6 GM/dL (10.7-15.3) 04/19/19 05:15 Hct 34.5 % (32.4-45.2) 04/19/19 05:15 MCV 101.4 fl (80-96) H 04/19/19 05:15 MCHC 33.7 g/dl (32.0-36.0) 04/19/19 05:15 RDW 14.1 % (11.6-15.6) 04/19/19 05:15 Plt Count 306 K/MM3 (134-434) 04/19/19 05:15 MPV 7.2 fl (7.5-11.1) L 04/19/19 05:15 CMP Sodium 142 mmol/L (136-145) 04/19/19 05:15 Potassium 3.3 mmol/L (3.5-5.1) L 04/19/19 05:15 Chloride 102 mmol/L (98-107) 04/19/19 05:15 Carbon Dioxide 33 mmol/L (21-32) H 04/19/19 05:15 Anion Gap 6 MMOL/L (8-16) L 04/19/19 05:15 BUN 19.3 mg/dL (7-18) H 04/19/19 05:15 Creatinine 0.9 mg/dL (0.55-1.3) 04/19/19 05:15 Random Glucose 95 mg/dL (74-106) 04/19/19 05:15 Calcium 10.9 mg/dL (8.5-10.1) H 04/19/19 05:15 Total Bilirubin 0.7 mg/dL (0.2-1) 04/19/19 05:15 AST 19 U/L (15-37) 04/19/19 05:15 ALT 16 U/L (13-61) 04/19/19 05:15 Alkaline Phosphatase 119 U/L (45-117) H 04/19/19 05:15 Total Protein 6.3 g/dl (6.4-8.2) L 04/19/19 05:15 Albumin 3.3 g/dl (3.4-5.0) L 04/19/19 05:15 CARDIAC ENZYMES Troponin I < 0.02 ng/ml (0.00-0.05) 04/18/19 19:05 Current Medications Generic Name Dose Route Start Last Admin Trade Name [place] PRN Reason Stop Dose Admin Amlodipine Besylate 5 mg 04/19/19 19:45 04/19/19 20:00 Norvasc - PO 5 mg DAILY HUSSEIN Administration Heparin Sodium (Porcine) 5,000 unit 04/18/19 22:00 04/19/19 21:25 Heparin - SQ 5,000 unit TID HUSSEIN Administration Hydralazine HCl 25 mg 04/19/19 17:32 Apresoline - PO Q1H PRN HYPERTENSION Sodium Chloride 1,000 mls @ 42 mls/hr 04/18/19 16:45 04/19/19 19:26 Normal Saline - IV Not Given ASDIR HUSSEIN Valsartan 160 mg 04/19/19 17:32 Diovan - PO DAILY HUSSEIN Home Medications Medication Instructions Recorded Ascorbate Calcium [Vitamin C] 1,000 mg PO DAILY 04/17/19 Cyanocobalamin (Vitamin B-12) 1,000 mcg PO DAILY 04/17/19 [Vitamin B12] Vitamin E 400 unit PO DAILY 04/17/19 CT abdomen and pelvis: mild to moderate colonic distention . no gross obstruction, questionable mild concentric rectal wall thickening. possible acute proctitis. ASSESSMENT AND PLAN: Patient is 89 year old woman with a pmhx of parahyperthyroidism and dementia , wrist fx who presents to the ED from her assisted living facility s/p unwitnessed fall, she is being admitted for syncopal workup. # Syncope r/o acs , carotids, ekg, Ct of the head neg, no infarct or bleed. will continue to monitor in tele , orthostatics , r/o uTI , patient is oriented to self only # Acute Hypercalcemia with hx of Hyperparathyroidism , gentle hydration x1 liter # Htn Uncontrolled on norvasc ,diovan , hydralazine and norvasc continue and monitor , cardio dr Jaime appreciated # Elevated MCV, will order, TSH,Ft4,Ft3, b12, folic acid. PT evaluation DVt px: heparin sq
[2019-04-20] MEDS: HEPARIN NA (PORCINE) 5,000 UNITS/ML 1ML VIAL SQ SCH ×3 (05:23→21:41)
[2019-04-20 06:17] LABS: HEMATOCRIT 35.5 % (32.4-45.2); HEMOGLOBIN 11.9 GM/dL (10.7-15.3); MCH 33.9 pg (25.7-33.7); MCHC 33.5 g/dl (32.0-36.0); MEAN CELL VOLUME 101.3 fl (80-96); MEAN PLT VOLUME 7.1 fl (7.5-11.1); PLATELET COUNT 325 K/MM3 (134-434); RDW 14.1 % (11.6-15.6); WHITE BLOOD COUNT 7.1 K/mm3 (4.0-10.0)
[2019-04-20 06:24] LABS: BLOOD UREA NITROGEN 16.4 mg/dL (7-18); CALCIUM 10.8 mg/dL (8.5-10.1); CREATININE 0.7 mg/dL (0.55-1.3); POTASSIUM 3.5 mmol/L (3.5-5.1)
--- NOTE | 2019-04-20 08:21 | PN ---
Teaching Attending Note Name of Resident: Flor Singh ATTENDING PHYSICIAN STATEMENT I saw and evaluated the patient. I reviewed the resident's note and discussed the case with the resident. I agree with the resident's findings and plan as documented. SUBJECTIVE: Patient is comfortable with no acute distress, confused , positive for moderate dementia (not sure for how long and her baseline) OBJECTIVE: Vital Signs Temperature 98.6 F 04/20/19 06:00 Pulse Rate 70 04/20/19 06:00 Respiratory Rate 20 04/20/19 06:00 Blood Pressure 169/89 04/20/19 06:00 O2 Sat by Pulse Oximetry (%) 97 04/19/19 23:30 GENERAL: The patient is awake, alert, and oriented to self and place , in no acute distress. HEAD: Normal with no signs of trauma. EYES: PERRL, extraocular movements intact, sclera anicteric, conjunctiva clear. ENT: Ears normal, oropharynx clear without exudates, moist mucous membranes. NECK: Trachea midline, full range of motion, supple. LUNGS: Breath sounds equal, clear to auscultation bilaterally, no wheezes, no crackles, no accessory muscle use. HEART: Regular rate and rhythm, S1, S2 without murmur, rub or gallop. ABDOMEN: Soft, nontender, nondistended, normoactive bowel sounds, no guarding, no rebound, no hepatosplenomegaly, no masses. EXTREMITIES: 2+ pulses, warm, well-perfused, no edema. NEUROLOGICAL: Cranial nerves II through XII grossly intact. Normal speech, gait not observed. PSYCH: Normal mood, normal affect. SKIN: Warm, dry, normal turgor, no rashes or lesions noted CBCD WBC 7.1 K/mm3 (4.0-10.0) 04/20/19 05:05 RBC 3.50 M/mm3 (3.60-5.2) L 04/20/19 05:05 Hgb 11.9 GM/dL (10.7-15.3) 04/20/19 05:05 Hct 35.5 % (32.4-45.2) 04/20/19 05:05 MCV 101.3 fl (80-96) H 04/20/19 05:05 MCHC 33.5 g/dl (32.0-36.0) 04/20/19 05:05 RDW 14.1 % (11.6-15.6) 04/20/19 05:05 Plt Count 325 K/MM3 (134-434) 04/20/19 05:05 MPV 7.1 fl (7.5-11.1) L 04/20/19 05:05 CMP Sodium 142 mmol/L (136-145) 04/20/19 05:05 Potassium 3.5 mmol/L (3.5-5.1) 04/20/19 05:05 Chloride 105 mmol/L (98-107) 04/20/19 05:05 Carbon Dioxide 34 mmol/L (21-32) H 04/20/19 05:05 Anion Gap 3 MMOL/L (8-16) L 04/20/19 05:05 BUN 16.4 mg/dL (7-18) 04/20/19 05:05 Creatinine 0.7 mg/dL (0.55-1.3) 04/20/19 05:05 Random Glucose 105 mg/dL (74-106) 04/20/19 05:05 Calcium 10.8 mg/dL (8.5-10.1) H 04/20/19 05:05 Total Bilirubin 0.7 mg/dL (0.2-1) 04/19/19 05:15 AST 19 U/L (15-37) 04/19/19 05:15 ALT 16 U/L (13-61) 04/19/19 05:15 Alkaline Phosphatase 119 U/L (45-117) H 04/19/19 05:15 Total Protein 6.3 g/dl (6.4-8.2) L 04/19/19 05:15 Albumin 3.3 g/dl (3.4-5.0) L 04/19/19 05:15 CARDIAC ENZYMES Troponin I < 0.02 ng/ml (0.00-0.05) 04/18/19 19:05 Current Medications Generic Name Dose Route Start Last Admin Trade Name Freq PRN Reason Stop Dose Admin Amlodipine Besylate 10 mg 04/20/19 10:00 Norvasc - PO DAILY HUSSEIN Heparin Sodium (Porcine) 5,000 unit 04/18/19 22:00 04/20/19 05:23 Heparin - SQ 5,000 unit TID HUSSEIN Administration Hydralazine HCl 25 mg 04/19/19 17:32 Apresoline - PO Q1H PRN HYPERTENSION Sodium Chloride 1,000 mls @ 42 mls/hr 04/18/19 16:45 04/19/19 19:26 Normal Saline - IV Not Given ASDIR HUSSEIN Valsartan 320 mg 04/20/19 10:00 Diovan - PO DAILY [facility] Home Medications Medication Instructions Recorded Ascorbate Calcium [Vitamin C] 1,000 mg PO DAILY 04/17/19 Cyanocobalamin (Vitamin B-12) 1,000 mcg PO DAILY 04/17/19 [Vitamin B12] Vitamin E 400 unit PO DAILY 04/17/19 Urine Test Results Urine Color Yellow 04/18/19 09:45 Urine Appearance Clear 04/18/19 09:45 Urine pH 6.5 (5.0-8.0) 04/18/19 09:45 Ur Specific [place] 1.014 (1.010-1.035) 04/18/19 09:45 Urine Protein Trace (NEGATIVE) 04/18/19 09:45 Urine Glucose (UA) Negative (NEGATIVE) 04/18/19 09:45 Urine Ketones Negative (NEGATIVE) 04/18/19 09:45 Urine Blood Negative (NEGATIVE) 04/18/19 09:45 Urine Nitrite Negative (NEGATIVE) 04/18/19 09:45 Urine Bilirubin Negative (NEGATIVE) 04/18/19 09:45 Ur Leukocyte Esterase Negative (NEGATIVE) 04/18/19 09:45 Laboratory Tests 04/19/19 04/19/19 05:15 05:15 Vitamin B12 617 Serum Folate 20 H TSH 0.91 Free T4 1.11 Free T3 2.7 Carotids: mild disease R>L CT abdomen and pelvis: mild to moderate colonic distention . no gross obstruction, questionable mild concentric rectal wall thickening. possible acute proctitis. ASSESSMENT AND PLAN: Patient is 89 year old woman with a pmhx of parahyperthyroidism and dementia , wrist fx who presents to the ED from her assisted living facility s/p unwitnessed fall, she is being admitted for syncopal workup. # Syncope: will add aspirin and Lipitor 20mg , Ct of the head neg, no infarct or bleed. check orthostatics , UA no growth , is negative . patient is oriented to self and place today # Acute Hypercalcemia with hx of Hyperparathyroidism , gentle hydration continue x 1 liter and monitor # Htn Urgency : added diovan/hydralzine/norvasc and increased the dose of diovan for now , continue to monitor # Elevated MCV all the w/u is negative as above. PT evaluation , needs rehab DVt px: heparin sq
[2019-04-20] MEDS ORDERED: METOPROLOL TARTRATE 25 MG TABLET (FP) PO SCH (10:00)
[2019-04-20] MEDS: amLODIPine BESYLATE 10 MG TABLET (FP) PO SCH (11:00)
[2019-04-20] MEDS: VALSARTAN 160 MG TABLET (UD) PO SCH (11:00)
--- NOTE | 2019-04-20 12:19 | PN ---
Physical Exam: SUBJECTIVE: Patient seen and examined at the bedside, no acute events overnight. Patient states she is feeling better and would like to remain in the hospital for an additional day. OBJECTIVE: Vital Signs Period Temp Pulse Resp BP Sys/Lowe Pulse Ox Last 24 Hr 97.5 F-98.7 F 70-89 20-20 150-200/76-93 95-97 GENERAL: Awake, alert, oriented to self, location, and reason for hospitalization. Comfortable without signs of trauma HEAD: Normal with no signs of trauma. EYES: Pupils equal, round and reactive to light, extraocular movements intact, sclera anicteric, conjunctiva clear. No lid lag. EARS, NOSE, THROAT: Ears normal, nares patent, oropharynx clear without exudates. Dry mucous membranes. NECK: Normal range of motion, supple without lymphadenopathy, JVD, or masses. LUNGS: Breath sounds equal, clear to auscultation bilaterally. No wheezes, and no crackles. No accessory muscle use. HEART: Regular rate and rhythm, normal S1 and S2 without murmur, rub or gallop. ABDOMEN: Soft, nontender, mildly distended, normoactive bowel sounds, no guarding, no rebound, no masses. MUSCULOSKELETAL: Normal range of motion at all joints. No bony deformities or tenderness. UPPER EXTREMITIES: 2+ pulses, warm, well-perfused. No cyanosis. No clubbing. No peripheral edema. LOWER EXTREMITIES: 2+ pulses, warm, well-perfused. No calf tenderness. No peripheral edema. NEUROLOGICAL: Cranial nerves II-XII intact. Normal speech. Gait not observed. Bilateral arm tremor noted with arms outstretched, worse with intentional movement, not present at rest. 4/5 strength throughout upper and lower extremities. PSYCHIATRIC: Cooperative. Good eye contact. Appropriate mood and affect. SKIN: Warm, dry, normal turgor, no rashes or lesions noted, normal capillary refill. Laboratory Results - last 24 hr 04/19/19 04/20/19 04/20/19 05:15 05:05 05:05 WBC 7.1 RBC 3.50 L Hgb 11.9 Hct 35.5 MCV 101.3 H MCH 33.9 H MCHC 33.5 RDW 14.1 Plt Count 325 MPV 7.1 L Sodium 142 Potassium 3.5 Chloride 105 Carbon Dioxide 34 H Anion Gap 3 L BUN 16.4 Creatinine 0.7 Est GFR (CKD-EPI)AfAm 89.66 Est GFR (CKD-EPI)NonAf 77.36 Random Glucose 105 Calcium 10.8 H Free T3 2.7 Active Medications Generic Name Dose Route Start Last Admin Trade Name Freq PRN Reason Stop Dose Admin Amlodipine Besylate 10 mg 04/20/19 10:00 04/20/19 11:00 Norvasc - PO 10 mg DAILY HUSSEIN Administration Heparin Sodium (Porcine) 5,000 unit 04/18/19 22:00 04/20/19 05:23 Heparin - SQ 5,000 unit TID HUSSEIN Administration Hydralazine HCl 25 mg 04/19/19 17:32 Apresoline - PO Q1H PRN HYPERTENSION Sodium Chloride 1,000 mls @ 42 mls/hr 04/18/19 16:45 04/19/19 19:26 Normal Saline - IV Not Given ASDIR HUSSEIN Valsartan 320 mg 04/20/19 10:00 04/20/19 11:00 Diovan - PO 320 mg DAILY HUSSEIN Administration ASSESSMENT/PLAN: Ms. Hernández is an 89 year old woman with a pmhx of parahyperthyroidism and dementia who presents to the ED from her assisted living facility s/p unwitnessed fall, she is being admitted for syncopal workup. # Syncope- EKG unremarkable, troponin's negativex2, imaging without any evidence of acute pathology (CT head without infarct or bleed, no fracture of hip or spine) - admit to tele for cardiac monitoring, patient does not have history of afib or arrhythmias however medical record is sparse and inconsistent as patient is poor historian -attempted orthostatics today, however unable to complete as patient could not stand, will reattempt tomorrow after PT evaluates her. Supine to sitting, no significant drop in BP - F/U Echo - Carotid doppler study showing mild atherosclerosis without any significant stenosis - Gentle hydration with NS @ 42cc/hr -PT consult -cont tele monitoring #HTN - Pt hypertensive since admission, states she does not take any medications at home - started valsartan 80mg PO daily - will target <160/90 for now, observe trend #FEN NS @42cc/hr Replete lytes PRN Regular Diet #Dispo - pending PT assessment, will likely SNF. Visit type - Emergency Visit Emergency Visit: Yes ED Registration Date: 04/20/19 Care time: The patient presented to the Emergency Department on the above date and was hospitalized for further evaluation of their emergent condition. - New Patient This patient is new to me today: No - Critical Care Critical Care patient: No - Discharge Referral Referred to [facility] Med [facility] No ATTENDING PHYSICIAN STATEMENT I saw and evaluated the patient. I reviewed the resident's note and discussed the case with the resident. I agree with the resident's findings and plan as documented. SUBJECTIVE: OBJECTIVE: ASSESSMENT AND PLAN:
--- NOTE | 2019-04-20 12:45 | PN ---
Progress Note (short form) - Note Progress Note: s: no chest pain, palps, dizziness, dyspnea Current Medications Amlodipine Besylate (Norvasc -) 10 mg PO DAILY [facility] Last Admin: 04/20/19 11:00 Dose: 10 mg Heparin Sodium (Porcine) (Heparin -) 5,000 unit SQ TID [facility] Last Admin: 04/20/19 05:23 Dose: 5,000 unit Hydralazine HCl (Apresoline -) 25 mg PO Q1H PRN PRN Reason: HYPERTENSION Sodium Chloride (Normal Saline -) 1,000 mls @ 42 mls/hr IV ASDIR [facility] Last Admin: 04/19/19 19:26 Dose: Not Given Valsartan (Diovan -) 320 mg PO DAILY [facility] Last Admin: 04/20/19 11:00 Dose: 320 mg Vital Signs Period Temp Pulse Resp BP Sys/Lowe Pulse Ox Last 24 Hr 97.5 F-98.7 F 70-89 20-20 150-200/76-93 95-97 Constitutional: Yes: Well Nourished, No Distress Eyes: No: Sclera Icterus HENT: No: Nasal Congestion Neck: No: Decreased ROM Respiratory: Yes: CTA Bilaterally. No: Accessory Muscle Use, Rales, Wheezes Gastrointestinal: Yes: Normal Bowel Sounds. No: Distention, Hepatomegaly, Palpable Mass, Tenderness Cardiovascular: Yes: Regular Rate and Rhythm JVD: No Carotid Bruit: Yes PMI: Non-Displaced Heart Sounds: Yes: S1, S2. No: Gallop Murmur: Yes: Systolic Murmur (2/6 early DAISY lusb). No: Diastolic Murmur Musculoskeletal: Yes: Other (No kyphosis) Extremities: No: Cool, Cyanosis Edema: No Peripheral Pulses: 2+ Left Carotid, 2+ Right Carotid, 2+ Left Doralis Pedis, 2+ Right Dorsalis Pedis Integumentary: No: Jaundice Neurological: Yes: Alert. No: Seizure Psychiatric: No: Agitated Assessment/Plan ECG x3: NSR, RG, no path q's or ischemic ST-T abn CXR: clear lungs/pleura tele: NSR echo nl LV function, grade I diastolic dysfunction, RV nl, mod MAC, mild MR, mild to mod TR, PASP at least 27 mmHg, mild ao sclerosis, mild AR fall vs syncope: -details of history not available sec to dementia -per d/w pmd, she had known fall with wrist frx (? tripped on uneven surfact) -CT head no acute findings -trop neg x 2, ecg non-ischemic -supine to seated bp's here: no drop -check orthostatics when/if can stand (ok to do with assistance) -echo nl LV function -left carotid bruit likely transmitted from AV area flow murmur (aortic sclerosis, no stenosis). carotid dopplers mild athero, no stenosis -tele monitoring HTN: -per Dr Jaime d/w pmd, office bp's 140s-160s/80s-90s, pt has declined meds -sees functional medicine PMD (dr calderon) -will target <160/90 for now, now on meds - monitor trend
[2019-04-20] MEDS: SODIUM CHLORIDE 1,000 ML IV SCH (21:35)
[2019-04-21 06:18] LABS: HEMOGLOBIN 12.1 GM/dL (10.7-15.3); MEAN CELL VOLUME 101.1 fl (80-96); MEAN PLT VOLUME 7.2 fl (7.5-11.1)
[2019-04-21] MEDS: HEPARIN NA (PORCINE) 5,000 UNITS/ML 1ML VIAL SQ SCH ×3 (06:32→21:10)
[2019-04-21] MEDS: SODIUM CHLORIDE 1,000 ML IV SCH (06:32)
[2019-04-21 06:43] LABS: BLOOD UREA NITROGEN 14.6 mg/dL (7-18); CALCIUM 10.9 mg/dL (8.5-10.1); CREATININE 0.6 mg/dL (0.55-1.3); POTASSIUM 3.5 mmol/L (3.5-5.1)
[2019-04-21 06:49] LABS: HEMATOCRIT 35.6 % (32.4-45.2); MCH 34.5 pg (25.7-33.7); MCHC 34.1 g/dl (32.0-36.0); PLATELET COUNT 340 K/MM3 (134-434); RBC 3.52 M/mm3 (3.60-5.2); WHITE BLOOD COUNT 7.9 K/mm3 (4.0-10.0)
[2019-04-21] MEDS ORDERED: PT OWN MED DRAWER 7, Y5N ONE (10:23)
[2019-04-21] MEDS: VALSARTAN 160 MG TABLET (UD) PO SCH (10:26)
[2019-04-21] MEDS: amLODIPine BESYLATE 10 MG TABLET (FP) PO SCH (10:26)
--- NOTE | 2019-04-21 12:14 | PN ---
Progress Note (short form) - Note Progress Note: s: no chest pain, palps, dizziness, dyspnea Current Medications Amlodipine Besylate (Norvasc -) 10 mg PO DAILY [facility] Last Admin: 04/21/19 10:26 Dose: 10 mg Heparin Sodium (Porcine) (Heparin -) 5,000 unit SQ TID [facility] Last Admin: 04/21/19 06:32 Dose: 5,000 unit Hydralazine HCl (Apresoline -) 25 mg PO Q1H PRN PRN Reason: HYPERTENSION Sodium Chloride (Normal Saline -) 1,000 mls @ 42 mls/hr IV ASDIR [facility] Last Admin: 04/21/19 06:32 Dose: 42 mls/hr Valsartan (Diovan -) 320 mg PO DAILY [facility] Last Admin: 04/21/19 10:26 Dose: 320 mg Vital Signs Period Temp Pulse Resp BP Sys/Lowe Pulse Ox Last 24 Hr 98.2 F-98.7 F 81-95 16-18 140-164/66-98 97 Constitutional: Yes: Well Nourished, No Distress Eyes: No: Sclera Icterus HENT: No: Nasal Congestion Neck: No: Decreased ROM Respiratory: Yes: CTA Bilaterally. No: Accessory Muscle Use, Rales, Wheezes Gastrointestinal: Yes: Normal Bowel Sounds. No: Distention, Hepatomegaly, Palpable Mass, Tenderness Cardiovascular: Yes: Regular Rate and Rhythm JVD: No Carotid Bruit: Yes PMI: Non-Displaced Heart Sounds: Yes: S1, S2. No: Gallop Murmur: Yes: Systolic Murmur (2/6 early DAISY lusb). No: Diastolic Murmur Musculoskeletal: Yes: Other (No kyphosis) Extremities: No: Cool, Cyanosis Edema: No Peripheral Pulses: 2+ Left Carotid, 2+ Right Carotid, 2+ Left Doralis Pedis, 2+ Right Dorsalis Pedis Integumentary: No: Jaundice Neurological: Yes: Alert. No: Seizure Psychiatric: No: Agitated Assessment/Plan ECG x3: NSR, RG, no path q's or ischemic ST-T abn CXR: clear lungs/pleura tele: NSR echo nl LV function, grade I diastolic dysfunction, RV nl, mod MAC, mild MR, mild to mod TR, PASP at least 27 mmHg, mild ao sclerosis, mild AR fall vs syncope: -details of history not available sec to dementia -per d/w pmd, she had known fall with wrist frx (? tripped on uneven surfact) -CT head no acute findings -trop neg x 2, ecg non-ischemic -supine to seated bp's here: no drop -echo nl LV function -left carotid bruit likely transmitted from AV area flow murmur (aortic sclerosis, no stenosis). carotid dopplers mild athero, no stenosis -tele monitoring HTN: -per Dr Jaime d/w pmd, office bp's 140s-160s/80s-90s, pt has declined meds -sees functional medicine PMD (dr calderon) - target <160/90 for now, now on meds - monitor trend
[2019-04-21] MEDS ORDERED: POLYETHYLENE GLYCOL 3350 119 GM BTL PO ONE (19:06)
--- NOTE | 2019-04-21 19:11 | PN ---
Teaching Attending Note Name of Resident: Sailaja Montaño ATTENDING PHYSICIAN STATEMENT I saw and evaluated the patient. I reviewed the resident's note and discussed the case with the resident. I agree with the resident's findings and plan as documented. SUBJECTIVE: no fever or chills. no pain . OBJECTIVE: slow , awake. CV: RRR, 3/6 Sm at base with radiation to carotid Lungs: CTAB Ext : no edema or erythema Abd: soft, ND, nl BS , NT ASSESSMENT AND PLAN: ASSESSMENT AND PLAN: Patient is 89 year old woman with a pmhx of hyperparathyroidism and dementia , recent wrist fx who presents to the ED from her assisted living facility s/p unwitnessed fall 1- Unwitnessed fall, can't w/o syncope. w/u neg to date 2- hypercalcemia: due to hyperparathyroidism. cont IVf. ca improved. f/u with endocrine 3- distended colon and thickened rectum. No signs of infection . had one BM while here. give senna/colace/miralax 4- HTN : cont meds dispo : rehab tomorrow pending auth DVT PX : heparin
--- NOTE | 2019-04-21 20:36 | PN ---
Physical Exam: SUBJECTIVE: Patient seen and examined at the bedside, there were no acute overnight events. Patient wishes to remain in bed to rest. OBJECTIVE: Vital Signs Period Temp Pulse Resp BP Sys/Lowe Pulse Ox Last 24 Hr 98.2 F-99.9 F 81-95 14-18 106-164/64-98 96-97 GENERAL: Awake, alert, oriented to self, location, and reason for hospitalization. Comfortable without signs of trauma HEAD: Normal with no signs of trauma. EYES: Pupils equal, round and reactive to light, extraocular movements intact, sclera anicteric, conjunctiva clear. No lid lag. EARS, NOSE, THROAT: Ears normal, nares patent, oropharynx clear without exudates. Dry mucous membranes. NECK: Normal range of motion, supple without lymphadenopathy, JVD, or masses. LUNGS: Breath sounds equal, clear to auscultation bilaterally. No wheezes, and no crackles. No accessory muscle use. HEART: Regular rate and rhythm, normal S1 and S2 without murmur, rub or gallop. ABDOMEN: Soft, nontender, mildly distended, normoactive bowel sounds, no guarding, no rebound, no masses. MUSCULOSKELETAL: Normal range of motion at all joints. No bony deformities or tenderness. UPPER EXTREMITIES: 2+ pulses, warm, well-perfused. No cyanosis. No clubbing. No peripheral edema. LOWER EXTREMITIES: 2+ pulses, warm, well-perfused. No calf tenderness. No peripheral edema. NEUROLOGICAL: Cranial nerves II-XII intact. Normal speech. Gait not observed. Bilateral arm tremor noted with arms outstretched, worse with intentional movement, not present at rest. 4/5 strength throughout upper and lower extremities. PSYCHIATRIC: Cooperative. Good eye contact. Appropriate mood and affect. SKIN: Warm, dry, normal turgor, no rashes or lesions noted, normal capillary refill. Laboratory Results - last 24 hr 04/21/19 04/21/19 05:00 05:00 WBC 7.9 RBC 3.52 L Hgb 12.1 Hct 35.6 MCV 101.1 H MCH 34.5 H MCHC 34.1 RDW 14.0 Plt Count 340 MPV 7.2 L Sodium 140 Potassium 3.5 Chloride 105 Carbon Dioxide 31 Anion Gap 5 L BUN 14.6 Creatinine 0.6 Est GFR (CKD-EPI)AfAm 94.32 Est GFR (CKD-EPI)NonAf 81.38 Random Glucose 117 H Calcium 10.9 H Active Medications Generic Name Dose Route Start Last Admin Trade Name F[place]ac PRN Reason Stop Dose Admin Amlodipine Besylate 10 mg 04/20/19 10:00 04/21/19 10:26 Norvasc - PO 10 mg DAILY HUSSEIN Administration Heparin Sodium (Porcine) 5,000 unit 04/18/19 22:00 04/21/19 14:16 Heparin - SQ 5,000 unit TID HUSSEIN Administration Hydralazine HCl 25 mg 04/19/19 17:32 Apresoline - PO Q1H PRN HYPERTENSION Sodium Chloride 1,000 mls @ 42 mls/hr 04/18/19 16:45 04/21/19 06:32 Normal Saline - IV 42 mls/hr ASDIR HUSSEIN Administration Senna/Docusate Sodium 2 tablet 04/21/19 22:00 Pericolace - PO 04/22/19 19:06 HS HUSSEIN Valsartan 320 mg 04/20/19 10:00 04/21/19 10:26 Diovan - PO 320 mg DAILY HUSSEIN Administration ASSESSMENT/PLAN: Ms. Hernández is an 89 year old woman with a pmhx of parahyperthyroidism and dementia who presents to the ED from her assisted living facility s/p unwitnessed fall, she is being admitted for syncopal workup. # Syncope- EKG unremarkable, troponin's negativex2, imaging without any evidence of acute pathology (CT head without infarct or bleed, no fracture of hip or spine) - admit to tele for cardiac monitoring, patient does not have history of afib or arrhythmias however medical record is sparse and inconsistent as patient is poor historian -attempted orthostatics today, however unable to complete as patient could not stand, will reattempt tomorrow after PT evaluates her. Supine to sitting, no significant drop in BP - F/U Echo - Carotid doppler study showing mild atherosclerosis without any significant stenosis - Gentle hydration with NS @ 42cc/hr -PT consult -cont tele monitoring #HTN - Pt hypertensive since admission, states she does not take any medications at home - started valsartan 80mg PO daily - will target <160/90 for now, observe trend #FEN NS @42cc/hr Replete lytes PRN Regular Diet #Dispo - accepted at [facility], will be discharged int he morning Visit type - Emergency Visit Emergency Visit: Yes ED Registration Date: 04/20/19 Care time: The patient presented to the Emergency Department on the above date and was hospitalized for further evaluation of their emergent condition. - New Patient This patient is new to me today: No - Critical Care Critical Care patient: No - Discharge Referral Referred to [facility] No ATTENDING PHYSICIAN STATEMENT I saw and evaluated the patient. I reviewed the resident's note and discussed the case with the resident. I agree with the resident's findings and plan as documented. SUBJECTIVE: OBJECTIVE: ASSESSMENT AND PLAN:
[2019-04-21] MEDS ORDERED: SENNOSIDES/DOCUSATE COMBO (SENNA PLUS) TABLET (UD) PO SCH (22:00)
[2019-04-22] MEDS: HEPARIN NA (PORCINE) 5,000 UNITS/ML 1ML VIAL SQ SCH ×2 (06:11→14:31)
[2019-04-22] MEDS: SODIUM CHLORIDE 1,000 ML IV SCH (10:10)
[2019-04-22] MEDS: amLODIPine BESYLATE 10 MG TABLET (FP) PO SCH (10:11)
[2019-04-22] MEDS: VALSARTAN 160 MG TABLET (UD) PO SCH (10:11)
--- NOTE | 2019-04-22 10:50 | PN ---
Progress Note (short form) - Note Progress Note: s: no chest pain, palps, dizziness, dyspnea Current Medications Generic Name Dose Route Start Last Admin Trade Name Freq PRN Reason Stop Dose Admin Amlodipine Besylate 10 mg 04/20/19 10:00 04/22/19 10:11 Norvasc - PO 10 mg DAILY HUSSEIN Administration Heparin Sodium (Porcine) 5,000 unit 04/18/19 22:00 04/22/19 06:11 Heparin - SQ 5,000 unit TID HUSSEIN Administration Hydralazine HCl 25 mg 04/19/19 17:32 Apresoline - PO Q1H PRN HYPERTENSION Sodium Chloride 1,000 mls @ 42 mls/hr 04/18/19 16:45 04/22/19 10:10 Normal Saline - IV 42 mls/hr ASDIR HUSSEIN Administration Senna/Docusate Sodium 2 tablet 04/21/19 22:00 04/21/19 21:13 Pericolace - PO 04/22/19 19:06 2 tablet HS HUSSEIN Administration Valsartan 320 mg 04/20/19 10:00 04/22/19 10:11 Diovan - PO 320 mg DAILY HUSSEIN Administration Vital Signs Period Temp Pulse Resp BP Sys/Lowe Pulse Ox Last 24 Hr 97.6 F-99.9 F 76-95 14-18 106-155/40-76 96-96 Constitutional: Yes: Well Nourished, No Distress Eyes: No: Sclera Icterus Respiratory: Yes: CTA Bilaterally. No: Accessory Muscle Use, Rales, Wheezes Gastrointestinal: Yes: Normal Bowel Sounds. No: Distention, Hepatomegaly, Palpable Mass, Tenderness Cardiovascular: Yes: Regular Rate and Rhythm JVD: No Carotid Bruit: Yes PMI: Non-Displaced Heart Sounds: Yes: S1, S2. No: Gallop Murmur: Yes: Systolic Murmur (2/6 early DAISY lusb). No: Diastolic Murmur Extremities: No: Cool, Cyanosis Edema: No Peripheral Pulses: 2+ Left Carotid, 2+ Right Carotid, 2+ Left Doralis Pedis, 2+ Right Dorsalis Pedis Integumentary: No: Jaundice Neurological: Yes: Alert. No: Seizure Psychiatric: No: Agitated CBC, BMP 04/21/19 05:00 04/21/19 05:00 Assessment/Plan ECG x3: NSR, RG, no path q's or ischemic ST-T abn CXR: clear lungs/pleura tele: SR echo nl LV function, grade I diastolic dysfunction, RV nl, mod MAC, mild MR, mild to mod TR, PASP at least 27 mmHg, mild ao sclerosis, mild AR fall vs syncope: -details of history not available sec to dementia -per d/w pmd, she had known fall with wrist frx (? tripped on uneven surfact) -CT head no acute findings -trop neg x 2, ecg non-ischemic -supine to seated bp's here: no drop -echo nl LV function -left carotid bruit likely transmitted from AV area flow murmur (aortic sclerosis, no stenosis). carotid dopplers mild athero, no stenosis -tele monitoring benign HTN: -per Dr Jaime d/w pmd, office bp's 140s-160s/80s-90s, pt has declined meds -sees functional medicine PMD (dr calderon) - target <160/90 for now, now on meds - monitor trend cardiac andersen stable
--- NOTE | 2019-04-22 13:44 | PN ---
Teaching Attending Note Name of Resident: Flor Singh ATTENDING PHYSICIAN STATEMENT I saw and evaluated the patient. I reviewed the resident's note and discussed the case with the resident. I agree with the resident's findings and plan as documented. SUBJECTIVE: nO EVENTS OVER NIGHT . no BM. SHE DENIES ANY PAIN OBJECTIVE: slow, awake. CV: RRR, 3/6 Sm at base with radiation to carotid Lungs: CTAB Ext : no edema or erythema Abd: soft, ND, nl BS , NT ASSESSMENT AND PLAN: Patient is 89 year old woman with a pmhx of hyperparathyroidism and dementia , recent wrist fx who presents to the ED from her assisted living facility s/p unwitnessed fall 1- Unwitnessed fall, can't w/o syncope. w/u neg to date 2- Hypercalcemia: due to hyperparathyroidism. . ca improved. f/u with endocrine as out pt 3- distended colon and thickened rectum. No signs of infection. had one BM while here. give senna/colace/miralax again 4- HTN: cont meds dispo : rehab placement is pending DVT px
[2019-04-22] MEDS ORDERED: POLYETHYLENE GLYCOL 3350 119 GM BTL PO ONE (14:00)
[2019-04-22 18:54] VITALS: BP 154/71; PULSE 83; TEMP 97.5
--- NOTE | 2019-04-25 20:40 | DS ---
Physical Exam: SUBJECTIVE: Patient seen and examined, there were no acute events. Patient still confused, resting comfortably in bed. OBJECTIVE: Last Vital Signs Temp Pulse Resp BP Pulse Ox 97.5 F L 83 20 154/71 96 04/22/19 18:00 04/22/19 18:00 04/22/19 18:00 04/22/19 18:00 04/22/19 12:00 PHYSICAL EXAM GENERAL: Awake, alert, oriented to self, location, and reason for hospitalization. Comfortable without signs of trauma HEAD: Normal with no signs of trauma. EYES: Pupils equal, round and reactive to light, extraocular movements intact, sclera anicteric, conjunctiva clear. No lid lag. EARS, NOSE, THROAT: Ears normal, nares patent, oropharynx clear without exudates. Dry mucous membranes. NECK: Normal range of motion, supple without lymphadenopathy, JVD, or masses. LUNGS: Breath sounds equal, clear to auscultation bilaterally. No wheezes, and no crackles. No accessory muscle use. HEART: Regular rate and rhythm, normal S1 and S2 without murmur, rub or gallop. ABDOMEN: Soft, nontender, mildly distended, normoactive bowel sounds, no guarding, no rebound, no masses. MUSCULOSKELETAL: Normal range of motion at all joints. No bony deformities or tenderness. UPPER EXTREMITIES: 2+ pulses, warm, well-perfused. No cyanosis. No clubbing. No peripheral edema. LOWER EXTREMITIES: 2+ pulses, warm, well-perfused. No calf tenderness. No peripheral edema. NEUROLOGICAL: Cranial nerves II-XII intact. Normal speech. Gait not observed. Bilateral arm tremor noted with arms outstretched, worse with intentional movement, not present at rest. 4/5 strength throughout upper and lower extremities. PSYCHIATRIC: Cooperative. Good eye contact. Appropriate mood and affect. SKIN: Warm, dry, normal turgor, no rashes or lesions noted, normal capillary refill. LABS CBC,CMP WBC 7.9 K/mm3 (4.0-10.0) 04/21/19 05:00 RBC 3.52 M/mm3 (3.60-5.2) L 04/21/19 05:00 Hgb 12.1 GM/dL (10.7-15.3) 04/21/19 05:00 Hct 35.6 % (32.4-45.2) 04/21/19 05:00 MCV 101.1 fl (80-96) H 04/21/19 05:00 MCH 34.5 pg (25.7-33.7) H 04/21/19 05:00 MCHC 34.1 g/dl (32.0-36.0) 04/21/19 05:00 RDW 14.0 % (11.6-15.6) 04/21/19 05:00 Plt Count 340 K/MM3 (134-434) 04/21/19 05:00 MPV 7.2 fl (7.5-11.1) L 04/21/19 05:00 Absolute Neuts (auto) 3.5 K/mm3 (1.5-8.0) 04/19/19 05:15 Neutrophils % 56.4 % (42.8-82.8) D 04/19/19 05:15 Lymphocytes % 26.7 % (8-40) D 04/19/19 05:15 Monocytes % 11.8 % (3.8-10.2) H 04/19/19 05:15 Eosinophils % 3.8 % (0-4.5) D 04/19/19 05:15 Basophils % 1.3 % (0-2.0) 04/19/19 05:15 Nucleated RBC % 0 % (0-0) 04/19/19 05:15 Sodium 140 mmol/L (136-145) 04/21/19 05:00 Potassium 3.5 mmol/L (3.5-5.1) 04/21/19 05:00 Chloride 105 mmol/L (98-107) 04/21/19 05:00 Carbon Dioxide 31 mmol/L (21-32) 04/21/19 05:00 Anion Gap 5 MMOL/L (8-16) L 04/21/19 05:00 BUN 14.6 mg/dL (7-18) 04/21/19 05:00 Creatinine 0.6 mg/dL (0.55-1.3) 04/21/19 05:00 Est GFR (CKD-EPI)AfAm 94.32 04/21/19 05:00 Est GFR (CKD-EPI)NonAf 81.38 04/21/19 05:00 Random Glucose 117 mg/dL (74-106) H 04/21/19 05:00 Calcium 10.9 mg/dL (8.5-10.1) H 04/21/19 05:00 Phosphorus 2.6 mg/dL (2.5-4.9) 04/19/19 05:15 Magnesium 2.1 mg/dL (1.8-2.4) 04/19/19 05:15 Total Bilirubin 0.7 mg/dL (0.2-1) 04/19/19 05:15 AST 19 U/L (15-37) 04/19/19 05:15 ALT 16 U/L (13-61) 04/19/19 05:15 Alkaline Phosphatase 119 U/L (45-117) H 04/19/19 05:15 Troponin I < 0.02 ng/ml (0.00-0.05) 04/18/19 19:05 B-Natriuretic Peptide 272.8 pg/ml (5-450) 04/18/19 10:00 Total Protein 6.3 g/dl (6.4-8.2) L 04/19/19 05:15 Albumin 3.3 g/dl (3.4-5.0) L 04/19/19 05:15 Vitamin B12 617 pg/ml (193-986) 04/19/19 05:15 Serum Folate 20 ng/mL (3.1-17.5) H 04/19/19 05:15 TSH 0.91 uIU/ml (0.358-3.74) 04/19/19 05:15 Free T4 1.11 ng/dl (0.76-1.46) 04/19/19 05:15 Free T3 2.7 pg/ml (2.0-4.4) 04/19/19 05:15 HOSPITAL COURSE: Date of Admission:04/20/19 Ms. Hernández is an 89 year old woman with a pmhx of hyperparathyroidism and dementia who presents to the ED from her assisted living facility s/p unwitnessed fall, she is being admitted for syncopal workup. EKG unremarkable, troponin's negativex2, imaging without any evidence of acute pathology (CT head without infarct or bleed, no fracture of hip or spine). Admitted to telemetry, tele monitoring did not show any arrhythmias. Carotid doppler study showing mild atherosclerosis without any significant stenosis. Echo showing nl LV function, grade I diastolic dysfunction, RV nl, mod MAC, mild MR, mild to mod TR , PASP at least 27 mmHg, mild ao sclerosis, mild AR. Supine to seated bp's without drop. Patient found to be hypertensive to the 140s-160s/80s-90s, pt has declined meds in the past but agreed to take valsartan 80mg on this admission. Patient was discharged to [facility] for PT rehabilitation prior to returning to her assisted living facility. Incidentally patient was found to have hypercalcemia 2 /2 hyperparathyroidism, ca improved over hospital course and patient was instructed to f/u with endocrine as out pt. She was also found to have distended colon and thickened rectum on abd/ pelvis CT however, there were no signs of infection, patient was otherwise asymptomatic and she had a BM while hospitalized. Date of Discharge: 04/25/19 Minutes to complete discharge: 40 Discharge Summary Reason For Visit: UNWITNESSED FALL Condition: Improved - Instructions Diet, Activity, Other Instructions: You were in the hospital because you fell at the assisted living facility where you live. Your workup included an EKG and cardiac monitoring, which were unremarkable. You also had an ultrasound of your heart which was normal. While in the hospital it was found that your blood pressure was high and we started you on medicine. You should continue taking these medicines and follow up with your primary care doctor for further management. [facility] a [facility] for [facility] before you return home. Please begin taking the following medications: - Amlodipine 10mg by mouth once per day - Valsartan 320mg by mouth once per day Please follow up with the following doctors within 1 week of discharge from the hospital: - Dr. Briones, your primary care doctor and have your basic metabolic panel checked - Dr. Jaime, a informatics developer - endocrinology dr. Rodriguez for your elevated calcium and hyperparathyroidism . one week appointment please If you have repeated falls, chest pains, dizziness, or shortness of breath please return to the emergency department immediately. bowel regimen is very important , give laxatives to a goal of one BM a day Referrals: Gianluca Briones MD [Primary Care Provider] - 1 Week Mark Jaime MD [Staff Physician] - 1 Week Corona Valdez MD [Staff Physician] - 1 Week Disposition: INTERMEDIATE FACILITY - Home Medications Comprehensive Discharge Medication List: Ambulatory Orders Ascorbate Calcium [Vitamin C] 1,000 mg PO DAILY 04/17/19 Cyanocobalamin (Vitamin B-12) [Vitamin B12] 1,000 mcg PO DAILY 04/17/19 Vitamin E 400 unit PO DAILY 04/17/19 Amlodipine Besylate [Norvasc -] 10 mg PO DAILY #30 tablet 04/21/19 Valsartan [Diovan] 320 mg PO DAILY #60 tablet 04/21/19 Polyethylene Glycol 3350 [Miralax (For Daily Use) -] 17 gm PO DAILY PRN #1 bottle 04/22/19 Sennosides/Docusate Sodium [Senna-Docusate Sodium Tablet] 1 each PO DAILY 30 Days #30 tablet 04/22/19 This patient is new to me today: No Emergency Visit: Yes ED Registration Date: 04/20/19 Care time: The patient presented to the Emergency Department on the above date and was hospitalized for further evaluation of their emergent condition. Critical Care patient: No - Discharge Referral Referred to [facility] No ATTENDING PHYSICIAN STATEMENT I saw and evaluated the patient. I reviewed the resident's note and discussed the case with the resident. I agree with the resident's findings and plan as documented. SUBJECTIVE: OBJECTIVE: ASSESSMENT AND PLAN:
== END 2019-04-22 19:18 | DRG 304 ==
LOC: JER 09:00 → JERBED 09:37 → J4S 17:42 → OBSVTOIN 04-20 12:25 → J4S 04-20 14:06
PROVIDERS: ADMIT Internal Medicine; ATTEND Internal Medicine
DX: I16.0 Hypertensive urgency (principal); E43 Unspecified severe protein-calorie malnutrition; Z68.1 Body mass index [BMI] 19.9 or less, adult; R55 Syncope and collapse; E83.52 Hypercalcemia; E21.3 Hyperparathyroidism, unspecified; K63.89 Other specified diseases of intestine
CPT/HCPCS: 36415; 70450-TC; 71045-TC-FY; 72125-TC; 72170-TC-FY; 74177-TC; 80048; 80053; 81003; 82550; 82607; 82746; 82962; 83735; 83880; 84100; 84439; 84443; 84481; 84484; 85025; 85027; 87086; 93005; 93010; 93306-TC; 93880-TC; 97116-GP; 97162-GP; 99284-25; 99285-25; G0378; J1644; J7030

== ENCOUNTER 2020-05-14 15:29 | Emergency (ER) | payer OTHER, BC ==
--- OUTSIDE RECORDS SUMMARY | 2020-05-14 15:55 | XMS ---
:1930 Author Organization [facility] Support Name Relationship Address Phone UE Unavailable Unavailable Unavailable MERVAT CORREIA [employer]UST MANAGER ASSISTANT [address] [facility] [phone] [address] [place] [address] Re-disclosure Warning The records that you are about to access may contain information from federally- assisted alcohol or drug abuse programs. If such information is present, then the following federally mandated warning applies: This information has been disclosed to you from records protected by federal confidentiality rules (42 CFR part 2). The federal rules prohibit you from making any further disclosure of this information unless further disclosure is expressly permitted by the written consent of the person to whom it pertains or as otherwise permitted by 42 CFR part 2. A general authorization for the release of medical or other information is NOT sufficient for this purpose. The Federal rules restrict any use of the information to criminally investigate or prosecute any alcohol or drug abuse patient.The records that you are about to access may contain highly sensitive health information, the redisclosure of which is protected by Article 27-F of the [facility] Public Health law. If you continue you may haveaccess to information: Regarding HIV / AIDS; Provided by facilities licensed or operated by the [facility] Office of Mental Health; or Provided by the [facility] Office for People With Developmental Disabilities. If such information is present, then the following [facility] mandated warning applies: This information has been disclosed to you from confidential records which are protected by state law. State law prohibits you from making any further disclosure of this information without the specific written consent of the person to whom it pertains, or as otherwise permitted by law. Any unauthorized further disclosure in violation of state law may result in a fine or shelter sentence or both. A general authorization for the release of medical or other information is NOT sufficient authorization for further disclosure. Insurance Providers Payer name Policy type Policy ID Covered Covered constitution party's Policy P melissa / Coverage constitution party ID relationship to [place] [employer] ormation type [place] MEDICARE [id number] SP [id number] A PPO [id number] SP [id number] MEDICARE [id number] SP [id number] Results ID Date Data Source [id number] 04/17/2020 05:08:00 PM EDT [facility] Name Value Range Interpretation Code Description Data Jennifer rce(s) Supporting Document(s ) SARS-CoV-2 [facility] (COVID19) This lab was ordered by [facility] and reported by [facility]. ID Date Data Source [id number] 12/25/2019 01:00:00 PM EDT [facility] Name Value Range Interpretation Code Description Data Jennifer rce(s) Supporting Document(s ) SARS-CoV-2 [facility] (COVID-19) This lab was ordered by [facility] and reported by [facility]. Procedure
[2020-05-14 15:57] VITALS: BMI 15.9
--- NOTE | 2020-05-14 17:28 | PDOC ---
History of Present Illness - General Chief Complaint: Nausea/Vomiting Stated Complaint: NAUSEA/VOMITTING Time Seen by Provider: 05/14/20 17:05 - History of Present Illness Initial Comments: 05/14/20 19:32 89yo F w/ dementia coming from [facility], sent by Dr. Paul for decreased PO intake and "spitting up all of her food." Pt is demented, so she is not able to provide accurate history. Past History - Medical History Allergies/Adverse Reactions: Allergies Allergy/AdvReac Type Severity Reaction Status Date / Time No Known Allergies Allergy Verified 05/14/20 15:46 Home Medications: Ambulatory Orders Ascorbate Calcium [Vitamin C] 1,000 mg PO DAILY 04/17/19 Cyanocobalamin (Vitamin B-12) [Vitamin B12] 1,000 mcg PO DAILY 04/17/19 Vitamin E 400 unit PO DAILY 04/17/19 Amlodipine Besylate [Norvasc -] 10 mg PO DAILY #30 tablet 04/21/19 Valsartan [Diovan] 320 mg PO DAILY #60 tablet 04/21/19 Polyethylene Glycol 3350 [Miralax (For Daily Use) -] 17 gm PO DAILY PRN #1 bottle 04/22/19 Sennosides/Docusate Sodium [Senna-Docusate Sodium Tablet] 1 each PO DAILY 30 Days #30 tablet 04/22/19 Cancer: Yes (basal cell carcinoma) COPD: No Dementia: Yes HTN: Yes Psychiatric Problems: (cognitive decline) Seizures: Yes (hyperparathyroidsm) - Reproductive History Is Patient Now?: No - Psycho-Social/Smoking History Smoking History: Never smoked - Substance Abuse Hx (Audit-C & DAST Scrn) How often the patient has a drink containing alcohol: Never Score: In Men: 4 or > Positive; In Women: 3 or > Positive: 0 Screen Result (Pos requires Nsg. Audit-10AR): Negative In the last yr the pt used illegal drug/Rx for NonMed reason: No Score: Yes response is considered Positive: 0 Screen Result (Positive result requires Nsg. DAST-10): Negative Review of Systems - Review of Systems Able to Perform ROS?: No (dementia - poor historian) *Physical Exam - Vital Signs Last Vital Signs Temp Pulse Resp BP Pulse Ox 97.0 F L 75 16 125/65 100 05/14/20 15:49 05/14/20 15:49 05/14/20 15:49 05/14/20 15:49 05/14/20 15:49 - Physical Exam General Appearance: Yes: Nourished, Appropriately Dressed. No: Apparent Distress HEENT: positive: EOMI, Normal Voice. negative: Normal ENT Inspection Neck: positive: Trachea midline, Supple. negative: Tender Respiratory/Chest: positive: Lungs Clear, Normal Breath Sounds. negative: Chest Tender Cardiovascular: positive: Regular Rhythm, Regular Rate Gastrointestinal/Abdominal: positive: Normal Bowel Sounds, Soft Musculoskeletal: positive: Normal Inspection. negative: CVA Tenderness Extremity: positive: Normal Capillary Refill, Normal Inspection, Normal Range of Motion Integumentary: positive: Normal Color, Dry, Warm Neurologic: positive: Alert. negative: Fully Oriented, Abnormal Cranial NS, Facial Droop ED Treatment Course - LABORATORY CBC & Chemistry Diagram: 05/14/20 17:42 05/14/20 17:42 Medical Decision Making - Medical Decision Making 05/14/20 19:35 89yo F w/ PMHx dementia presents with reported decreased PO intake and spitting up food. no CP, EKG = ??, no diaphoresis, trop = wnl -> unlikely ACS labs -> dispo/dc 05/15/20 13:31 Discharge - Discharge Information Problems reviewed: Yes Clinical Impression/Diagnosis: Vomiting Qualifiers: Vomiting type: unspecified Vomiting Intractability: non-intractable Nausea presence: without nausea Qualified Code(s): R11.11 - Vomiting without nausea Condition: Stable Disposition: RESIDENTIAL FACILITY - Admission No - Follow up/Referral Referrals: Regina Neely [Primary Care Provider] - - Patient Discharge Instructions Patient Printed Discharge Instructions: DI for Vomiting -- Adult, DI for Poor Appetite - Post Discharge Activity
--- NOTE | 2020-05-14 17:42 | PDOC ---
Documentation entered by Oscar Chin SCRIBE, acting as scribe for Mariluz Wayne MD. Mariluz Wayne MD: This documentation has been prepared by the scribe, Oscar Riojas SCRIBE, under my direction and personally reviewed by me in its entirety. I confirm that the documentation accurately reflects all work, treatment, procedures, and medical decision making performed by me. Attending Attestation - Resident Resident Name: Bobby Campos - ED Attending Attestation I have performed the following: I have examined & evaluated the patient, The case was reviewed & discussed with the resident, I agree w/resident's findings & plan, Exceptions are as noted - HPI HPI: 05/14/20 17:39 This 89 yo female BIBA from [facility] for nausea and vomiting PMH significant for parahyperthyroidism - Physicial Exam PE: 05/14/20 17:12 GENERAL: Well developed, well nourished. Awake and alert. No acute distress. HEENT: Normocephalic, atraumatic. PERRLA, EOMI. Sclera are non-icteric.Dry mucous membranes. NECK: Supple. Full ROM. CARDIOVASCULAR: Regular rate and rhythm. PULMONARY: No evidence of respiratory distress. Lungs clear to auscultation bilaterally. ABDOMINAL: Soft. Non-tender. Non-distended. No rebound or guarding. MUSCULOSKELETAL: Normal range of motion at all joints. EXTREMITIES: No cyanosis. No clubbing. No edema SKIN: Warm and dry. NEUROLOGICAL: Alert, awake, appropriate. Cranial nerves 2-12 intact. No gross focal neuro deficits PSYCHIATRIC: Cooperative. Good eye contact. Appropriate mood and affect. 05/14/20 18:10 - Medical Decision Making 05/14/20 18:38 labs reviewed cbc is unremakable chemistries k=3.4, mg=2.2,normal glucose and renal function 05/14/20 18:40 05/14/20 20:31 pt has been eating here d/c back to facility Discharge - Discharge Information Problems reviewed: Yes Clinical Impression/Diagnosis: Vomiting Qualifiers: Vomiting type: unspecified Vomiting Intractability: non-intractable Nausea presence: without nausea Qualified Code(s): R11.11 - Vomiting without nausea Condition: Stable Disposition: RESIDENTIAL FACILITY - Follow up/Referral Referrals: Regina Neely [Primary Care Provider] - - Patient Discharge Instructions Patient Printed Discharge Instructions: DI for Vomiting -- Adult, DI for Poor Appetite - Post Discharge Activity
[2020-05-14] MEDS ORDERED: LACTATED RINGERS SOLUTION 1000 ML INFUS.BAG IV STA (17:54)
[2020-05-14 18:02] LABS: INR 0.93 (0.83-1.09)
[2020-05-14 18:04] LABS: ACTIVATED PTT 28.1 SECONDS (25.2-36.5)
[2020-05-14 18:14] LABS: BASO % 0.7 % (0-2.0); EOS % 0.9 % (0-4.5); HEMATOCRIT 37.2 % (32.4-45.2); HEMOGLOBIN 12.3 GM/dL (10.7-15.3); LYMPH % 18.1 % (8-40); MCH 31.9 pg (25.7-33.7); MCHC 33.1 g/dl (32.0-36.0); MEAN CELL VOLUME 96.4 fl (80-96); MEAN PLT VOLUME 6.4 fl (7.5-11.1); MONO % 7.8 % (3.8-10.2); NEUT % 72.5 % (42.8-82.8); PLATELET COUNT 507 K/MM3 (134-434); RBC 3.86 M/mm3 (3.60-5.2); WHITE BLOOD COUNT 8.6 K/mm3 (4.0-10.0)
[2020-05-14 18:16] LABS: ALBUMIN 3.1 g/dl (3.4-5.0); ALK PHOS 115 U/L (45-117); ANION GAP 7 MMOL/L (8-16); BILIRUBIN,TOTAL 0.6 mg/dL (0.2-1); BLOOD UREA NITROGEN 17.9 mg/dL (7-18); CALCIUM 10.8 mg/dL (8.5-10.1); CHLORIDE 101 mmol/L (98-107); CO2 30 mmol/L (21-32); GLUCOSE,RANDOM 104 mg/dL (74-106); LIPASE 157 U/L (73-393); MAGNESIUM 2.2 mg/dL (1.8-2.4); PHOSPHOROUS 2.3 mg/dL (2.5-4.9); POTASSIUM 3.4 mmol/L (3.5-5.1); SGOT/AST 16 U/L (15-37); SGPT/ALT 14 U/L (13-61); SODIUM 138 mmol/L (136-145); TOT PROT 6.8 g/dl (6.4-8.2)
[2020-05-14 23:57] VITALS: BP 128/62; PULSE 74; TEMP 98.1
--- NOTE | 2020-05-15 11:50 | EKG ---
Test Reason : Blood Pressure : / mmHG Vent. Rate : 068 BPM Atrial Rate : 068 BPM P-R Int : 208 ms QRS Dur : 082 ms QT Int : 388 ms P-R-T Axes : 092 -32 050 degrees QTc Int : 412 ms NORMAL SINUS RHYTHM POSSIBLE LEFT ATRIAL ENLARGEMENT LEFT AXIS DEVIATION ABNORMAL ECG WHEN COMPARED WITH ECG OF 18-APR-2019 09:05, VENT. RATE HAS DECREASED Confirmed by YESSY ANGUIANO, NAYA ([id number]) on 05/15/2020 11:50:24 AM Referred By: Confirmed By:NAYA KRISHNAMURTHY MD
== END 2020-05-14 23:58 ==
LOC: JER 15:29
DX: R11.11 Vomiting without nausea (principal)
CPT/HCPCS: 36415; 71045-TC-FY; 80053; 83690; 83735; 84100; 84484; 85025; 85610; 85730; 86850; 86900; 86901; 93005; 93010; 99285-25

== ENCOUNTER 2020-06-16 12:20 | Emergency (ER) | payer OTHER, BC ==
[2020-06-16 12:37] VITALS: BMI 21.2
[2020-06-16 16:38] LABS: BASO % 1.5 % (0-2.0); EOS % 2.6 % (0-4.5); HEMATOCRIT 42.8 % (32.4-45.2); HEMOGLOBIN 14.2 GM/dL (10.7-15.3); LYMPH % 23.2 % (8-40); MCH 32.6 pg (25.7-33.7); MCHC 33.2 g/dl (32.0-36.0); MEAN CELL VOLUME 98.1 fl (80-96); MEAN PLT VOLUME 6.9 fl (7.5-11.1); MONO % 5.3 % (3.8-10.2); NEUT % 67.4 % (42.8-82.8); PLATELET COUNT 348 K/MM3 (134-434); RBC 4.36 M/mm3 (3.60-5.2); RDW 15.5 % (11.6-15.6); WHITE BLOOD COUNT 6.5 K/mm3 (4.0-10.0)
[2020-06-16 16:50] LABS: INR 0.89 (0.83-1.09)
[2020-06-16 16:53] LABS: ACTIVATED PTT 26.4 SECONDS (25.2-36.5)
[2020-06-16 17:05] LABS: CHLORIDE 100 mmol/L (98-107); POTASSIUM 3.3 mmol/L (3.5-5.1); SODIUM 139 mmol/L (136-145)
[2020-06-16 17:07] LABS: CALCIUM 11.3 mg/dL (8.5-10.1)
[2020-06-16 17:08] LABS: ALBUMIN 3.4 g/dl (3.4-5.0); ANION GAP 7 MMOL/L (8-16); BLOOD UREA NITROGEN 16.3 mg/dL (7-18); CO2 32 mmol/L (21-32); GLUCOSE,RANDOM 93 mg/dL (74-106)
[2020-06-16 17:11] LABS: CREATININE 0.8 mg/dL (0.55-1.3); SGOT/AST 19 U/L (15-37); SGPT/ALT 15 U/L (13-61)
[2020-06-16 17:12] LABS: BILIRUBIN,TOTAL 0.5 mg/dL (0.2-1); TOT PROT 7.2 g/dl (6.4-8.2)
[2020-06-16 17:13] LABS: ALK PHOS 104 U/L (45-117)
[2020-06-16] MEDS ORDERED: POTASSIUM CHLORIDE TABS 20 MEQ TABLET.ER (FP) PO ONE (17:30)
[2020-06-16] MEDS ORDERED: POTASSIUM CHLORIDE ORAL LIQUID 20 MEQ/15 ML PO STA (17:35)
[2020-06-16] MEDS ORDERED: amLODIPine BESYLATE 10 MG TABLET (FP) PO ONE (18:02)
[2020-06-16] MEDS ORDERED: amLODIPine BESYLATE 5 MG TABLET (FP) ONE (18:05)
[2020-06-16] MEDS ORDERED: POTASSIUM CHLORIDE ORAL LIQUID 20 MEQ/15 ML ONE (18:05)
[2020-06-16 20:13] LABS: URINE APPEARANCE CLEAR; URINE BILIRUBIN NEGATIVE (NEGATIVE); URINE COLOR YELLOW; URINE GLUCOSE (UA) NEGATIVE (NEGATIVE); URINE KETONE NEGATIVE (NEGATIVE); URINE LEUK ESTERASE NEGATIVE (NEGATIVE); URINE NITRITE NEGATIVE (NEGATIVE); URINE PROTEIN NEGATIVE (NEGATIVE)
[2020-06-16 22:15] VITALS: BP 141/82; PULSE 80; TEMP 98.6
== END 2020-06-16 22:47 ==
LOC: JER 12:20
DX: E87.6 Hypokalemia (principal); I10 Essential (primary) hypertension; W19.XXXA Unspecified fall, initial encounter
CPT/HCPCS: 36415; 70450-TC; 71045-TC-FY; 72125-TC; 80053; 81003; 82550; 84484; 85025; 85610; 85730; 87086; 87186; 93005; 93010; 99285-25

== ENCOUNTER 2020-08-02 11:58 | Emergency (ER) | payer OTHER, BC ==
[2020-08-02 12:27] VITALS: BMI 25.0
[2020-08-02] MEDS ORDERED: ACETAMINOPHEN 325 MG TABLET (FP) PO ONE (12:31)
[2020-08-02] MEDS ORDERED: ACETAMINOPHEN 325 MG TABLET (FP) ONE (12:36)
[2020-08-02 13:49] LABS: BASO % 0.5 % (0-2.0); EOS % 2.2 % (0-4.5); HEMATOCRIT 41.4 % (32.4-45.2); LYMPH % 12.5 % (8-40); MCH 33.6 pg (25.7-33.7); MCHC 33.9 g/dl (32.0-36.0); MEAN CELL VOLUME 99.1 fl (80-96); MEAN PLT VOLUME 7.1 fl (7.5-11.1); NEUT % 77.8 % (42.8-82.8); PLATELET COUNT 375 K/MM3 (134-434); RBC 4.18 M/mm3 (3.60-5.2); RDW 15.6 % (11.6-15.6); WHITE BLOOD COUNT 8.3 K/mm3 (4.0-10.0)
[2020-08-02 13:58] LABS: PH,URINE 7.5 (5.0-8.0); URINE APPEARANCE CLEAR; URINE BILIRUBIN NEGATIVE (NEGATIVE); URINE COLOR YELLOW; URINE GLUCOSE (UA) NEGATIVE (NEGATIVE); URINE KETONE NEGATIVE (NEGATIVE); URINE LEUK ESTERASE NEGATIVE (NEGATIVE); URINE NITRITE NEGATIVE (NEGATIVE); URINE PROTEIN NEGATIVE (NEGATIVE)
[2020-08-02 18:09] LABS: CHLORIDE 106 mmol/L (98-107); POTASSIUM 3.5 mmol/L (3.5-5.1); SODIUM 141 mmol/L (136-145)
[2020-08-02 18:11] LABS: ALBUMIN 3.2 g/dl (3.4-5.0); ANION GAP 7 MMOL/L (8-16); BLOOD UREA NITROGEN 13.6 mg/dL (7-18); CALCIUM 10.6 mg/dL (8.5-10.1); CO2 29 mmol/L (21-32); GLUCOSE,RANDOM 101 mg/dL (74-106)
[2020-08-02 18:14] LABS: SGOT/AST 12 U/L (15-37); SGPT/ALT 11 U/L (13-61)
[2020-08-02 18:16] LABS: BILIRUBIN,TOTAL 0.4 mg/dL (0.2-1)
[2020-08-02 18:17] LABS: ALK PHOS 97 U/L (45-117)
[2020-08-02 18:21] LABS: CREATININE 0.8 mg/dL (0.55-1.3); TOT PROT 6.6 g/dl (6.4-8.2)
[2020-08-02 21:40] VITALS: TEMP 98.1
[2020-08-02 22:02] VITALS: BP 183/111; PULSE 92
== END 2020-08-02 22:22 | disposition home or self-care (01) ==
LOC: JER 11:58
DX: S42.292A Other displaced fracture of upper end of left humerus, initial encounter for closed fracture (principal)
CPT/HCPCS: 36415; 70450-TC; 71045-TC-FY; 72125-TC; 72170-TC-FY; 73030-TC-LT-FY; 73060-TC-LT-FY; 73070-TC-LT-FY; 73090-TC-LT-FY; 73110-TC-LT-FY; 73130-TC-LT-FY; 80053; 81003; 84484; 85025; 87086; 93005; 93010; 99285-25

== ENCOUNTER 2020-08-21 13:27 | Inpatient (IN) | payer OTHER, BC ==
[2020-08-21] MEDS ORDERED: SODIUM CHLORIDE 1,361 ML IV ONE (14:48)
[2020-08-21 15:30] LABS: BASO % 0.1 % (0-2.0); EOS % 0.1 % (0-4.5); HEMATOCRIT 41.8 % (32.4-45.2); HEMOGLOBIN 13.7 GM/dL (10.7-15.3); MCH 33.5 pg (25.7-33.7); MCHC 32.7 g/dl (32.0-36.0); MEAN CELL VOLUME 102.6 fl (80-96); MEAN PLT VOLUME 8.4 fl (7.5-11.1); MONO % 12.3 % (3.8-10.2); NEUT % 82.5 % (42.8-82.8); PLATELET COUNT 454 K/MM3 (134-434); RBC 4.08 M/mm3 (3.60-5.2); RDW 15.8 % (11.6-15.6); WHITE BLOOD COUNT 12.7 K/mm3 (4.0-10.0)
[2020-08-21 15:40] LABS: POTASSIUM 3.5 mmol/L (3.5-5.1)
[2020-08-21 15:42] LABS: CALCIUM 9.3 mg/dL (8.5-10.1)
[2020-08-21 15:43] LABS: ALBUMIN 2.8 g/dl (3.4-5.0); INR 1.06 (0.83-1.09)
[2020-08-21 15:46] LABS: ACTIVATED PTT 27.5 SECONDS (25.2-36.5); CREATININE 3.6 mg/dL (0.55-1.3)
[2020-08-21 15:47] LABS: BILIRUBIN,TOTAL 0.9 mg/dL (0.2-1); TOT PROT 7.2 g/dl (6.4-8.2)
[2020-08-21 15:57] LABS: BLOOD UREA NITROGEN 111.9 mg/dL (7-18)
[2020-08-21 16:21] LABS: EPI CELLS >36 /uL (0-25.1); HYALINE CASTS 11 /uL (0-3.1); URINE APPEARANCE TURBID; URINE BACTERIA >9,000 /uL (0-1359); URINE BILIRUBIN NEGATIVE (NEGATIVE); URINE COLOR YELLOW; URINE GLUCOSE (UA) NEGATIVE (NEGATIVE); URINE KETONE TRACE (NEGATIVE); URINE LEUK ESTERASE 3+ (NEGATIVE); URINE NITRITE NEGATIVE (NEGATIVE); URINE PROTEIN 1+ (NEGATIVE); URINE WBC 6207 /uL (0-25.8)
[2020-08-21] MEDS ORDERED: CEFTRIAXONE 1 GM in DEXTROSE 5%-WATER - 50 ML IVPB ONE (16:43)
[2020-08-21] MEDS ORDERED: SODIUM CHLORIDE 1,000 ML IV STA (16:43)
[2020-08-21] MEDS ORDERED: POLYETHYLENE GLYCOL 3350 119 GM BTL PO PRN (17:54)
[2020-08-21] MEDS ORDERED: ACETAMINOPHEN 325 MG TABLET (FP) PO PRN (17:55)
[2020-08-21] MEDS ORDERED: DEXTROSE 5%-WATER - 1,000 ML IV SCH (18:15)
[2020-08-21] MEDS: PANTOPRAZOLE 40 MG TABLET PO SCH (18:43)
[2020-08-21] MEDS ORDERED: MIRTAZAPINE 15 MG TABLET (FP) PO SCH (22:00)
[2020-08-21] MEDS: DOCUSATE SODIUM 100 MG CAPSULE (FP) PO SCH (22:10)
[2020-08-21] MEDS: MEMANTINE HCL 10 MG TABLET (FP) PO SCH (22:10)
[2020-08-21] MEDS: MIRTAZAPINE 15 MG TABLET (FP) PO SCH (22:10)
[2020-08-21] MEDS ORDERED: HEPARIN NA (PORCINE) 5,000 UNITS/ML 1ML VIAL ONE (22:13)
[2020-08-21] MEDS: HEPARIN NA (PORCINE) 5,000 UNITS/ML 1ML VIAL SQ SCH (22:15)
[2020-08-21 22:43] LABS: URINE RBC 205.6 /uL (0-23.9); YEAST NEGATIVE (NEGATIVE)
[2020-08-22] MEDS: HEPARIN NA (PORCINE) 5,000 UNITS/ML 1ML VIAL SQ SCH ×3 (06:03→21:38)
[2020-08-22] MEDS ORDERED: DEXTROSE 5%-WATER - 1,000 ML IV SCH (07:35)
[2020-08-22] MEDS: MEMANTINE HCL 10 MG TABLET (FP) PO SCH ×2 (09:51→21:37)
[2020-08-22] MEDS: CYANOCOBALAMIN 1,000 MCG TABLET (FP) PO SCH (09:52)
[2020-08-22] MEDS: PANTOPRAZOLE 40 MG TABLET PO SCH (09:52)
[2020-08-22] MEDS: CARVEDILOL 3.125 MG TABLET (FP) PO SCH ×2 (09:52→21:37)
[2020-08-22 11:55] LABS: BASO % 0.1 % (0-2.0); HEMATOCRIT 41.5 % (32.4-45.2); HEMOGLOBIN 13.5 GM/dL (10.7-15.3); LYMPH % 5.8 % (8-40); MCH 33.1 pg (25.7-33.7); MCHC 32.5 g/dl (32.0-36.0); MEAN CELL VOLUME 101.7 fl (80-96); MEAN PLT VOLUME 8.4 fl (7.5-11.1); MONO % 9.1 % (3.8-10.2); PLATELET COUNT 395 K/MM3 (134-434); RBC 4.08 M/mm3 (3.60-5.2); RDW 15.6 % (11.6-15.6); WHITE BLOOD COUNT 11.3 K/mm3 (4.0-10.0)
[2020-08-22 12:13] LABS: POTASSIUM 3.1 mmol/L (3.5-5.1)
[2020-08-22 12:15] LABS: ALBUMIN 2.4 g/dl (3.4-5.0); CALCIUM 8.8 mg/dL (8.5-10.1)
[2020-08-22 12:18] LABS: CREATININE 2.4 mg/dL (0.55-1.3)
[2020-08-22 12:21] LABS: BILIRUBIN,TOTAL 1.2 mg/dL (0.2-1)
[2020-08-22 12:34] LABS: BLOOD UREA NITROGEN 109.5 mg/dL (7-18)
[2020-08-22 13:07] LABS: PHOSPHOROUS 6.3 mg/dL (2.5-4.9)
[2020-08-22] MEDS ORDERED: SODIUM CHLORIDE 0.45% 1,000 ML IV SCH (13:30)
[2020-08-22] MEDS: KCL 10 MEQ IVPB 10 MEQ/100 ML INFUS.BAG IVPB SCH ×2 (14:34→17:09)
[2020-08-22] MEDS ORDERED: cefTRIAXone SODIUM 1 GM VIAL ONE (16:31)
[2020-08-22] MEDS ORDERED: DEXTROSE 5%-WATER - 50 ML IVPB ONE (16:31)
[2020-08-22] MEDS: CEFTRIAXONE 1 GM in DEXTROSE 5%-WATER - 50 ML IVPB SCH (16:35)
[2020-08-22] MEDS: DOCUSATE SODIUM 100 MG CAPSULE (FP) PO SCH (21:34)
[2020-08-22] MEDS: MIRTAZAPINE 15 MG TABLET (FP) PO SCH (21:37)
[2020-08-23] MEDS: HEPARIN NA (PORCINE) 5,000 UNITS/ML 1ML VIAL SQ SCH ×3 (05:35→22:14)
[2020-08-23] MEDS ORDERED: cefTRIAXone SODIUM 1 GM VIAL ONE (10:33)
[2020-08-23] MEDS ORDERED: DEXTROSE 5%-WATER - 50 ML IVPB ONE (10:33)
[2020-08-23] MEDS: CEFTRIAXONE 1 GM in DEXTROSE 5%-WATER - 50 ML IVPB SCH (10:55)
[2020-08-23] MEDS: PANTOPRAZOLE 40 MG TABLET PO SCH (10:56)
[2020-08-23] MEDS: CARVEDILOL 3.125 MG TABLET (FP) PO SCH ×2 (10:56→22:13)
[2020-08-23] MEDS: MEMANTINE HCL 10 MG TABLET (FP) PO SCH ×2 (10:56→22:13)
[2020-08-23] MEDS: CYANOCOBALAMIN 1,000 MCG TABLET (FP) PO SCH (10:56)
[2020-08-23 11:25] LABS: BASO % 0.1 % (0-2.0); EOS % 3.9 % (0-4.5); HEMOGLOBIN 12.6 GM/dL (10.7-15.3); LYMPH % 7.2 % (8-40); MCH 33.7 pg (25.7-33.7); MEAN CELL VOLUME 102.1 fl (80-96); MEAN PLT VOLUME 8.9 fl (7.5-11.1); MONO % 6.5 % (3.8-10.2); NEUT % 82.3 % (42.8-82.8); PLATELET COUNT 372 K/MM3 (134-434); RBC 3.72 M/mm3 (3.60-5.2); RDW 15.6 % (11.6-15.6); WHITE BLOOD COUNT 11.5 K/mm3 (4.0-10.0)
[2020-08-23 11:56] LABS: CHLORIDE 123 mmol/L (98-107); POTASSIUM 3.4 mmol/L (3.5-5.1); SODIUM 157 mmol/L (136-145)
[2020-08-23 11:59] LABS: ALBUMIN 2.2 g/dl (3.4-5.0); ANION GAP 10 MMOL/L (8-16); CALCIUM 8.9 mg/dL (8.5-10.1); CO2 25 mmol/L (21-32); GLUCOSE,RANDOM 108 mg/dL (74-106)
[2020-08-23 12:00] LABS: BLOOD UREA NITROGEN 93.1 mg/dL (7-18)
[2020-08-23 12:02] LABS: SGPT/ALT 29 U/L (13-61)
[2020-08-23 12:03] LABS: SGOT/AST 15 U/L (15-37)
[2020-08-23 12:04] LABS: BILIRUBIN,TOTAL 0.5 mg/dL (0.2-1); TOT PROT 5.8 g/dl (6.4-8.2)
[2020-08-23 12:05] LABS: ALK PHOS 140 U/L (45-117)
[2020-08-23] MEDS ORDERED: DEXTROSE 5%-WATER - 1,000 ML IV SCH (12:30)
[2020-08-23] MEDS ORDERED: DEXTROSE 5%-WATER - 1,000 ML with POTASSIUM CHLORIDE 40 MEQ IV SCH (12:32)
[2020-08-23] MEDS: POTASSIUM CHLORIDE 40 MEQ in DEXTROSE 5%-WATER - 1,000 ML IV SCH (18:11)
[2020-08-23] MEDS: MIRTAZAPINE 15 MG TABLET (FP) PO SCH (22:12)
[2020-08-23] MEDS: DOCUSATE SODIUM 100 MG CAPSULE (FP) PO SCH (22:15)
[2020-08-24] MEDS: POTASSIUM CHLORIDE 40 MEQ in DEXTROSE 5%-WATER - 1,000 ML IV SCH ×3 (05:34→13:42)
[2020-08-24] MEDS: HEPARIN NA (PORCINE) 5,000 UNITS/ML 1ML VIAL SQ SCH ×3 (06:22→22:33)
[2020-08-24 08:39] LABS: POTASSIUM 3.6 mmol/L (3.5-5.1)
[2020-08-24 08:58] LABS: CALCIUM 9.1 mg/dL (8.5-10.1); MAGNESIUM 1.7 mg/dL (1.8-2.4)
[2020-08-24 09:01] LABS: CREATININE 1.4 mg/dL (0.55-1.3); PHOSPHOROUS 3.2 mg/dL (2.5-4.9)
[2020-08-24 09:02] LABS: BLOOD UREA NITROGEN 62.1 mg/dL (7-18)
[2020-08-24] MEDS ORDERED: MAGNESIUM 2GM/50ML STERILE WATER IVPB IVPB ONE (09:30)
[2020-08-24] MEDS ORDERED: DEXTROSE 5%-WATER - 50 ML IVPB ONE (09:33)
[2020-08-24] MEDS ORDERED: cefTRIAXone SODIUM 1 GM VIAL ONE (09:33)
[2020-08-24] MEDS: CEFTRIAXONE 1 GM in DEXTROSE 5%-WATER - 50 ML IVPB SCH (09:37)
[2020-08-24] MEDS: PANTOPRAZOLE 40 MG TABLET PO SCH (09:38)
[2020-08-24] MEDS: MEMANTINE HCL 10 MG TABLET (FP) PO SCH ×2 (09:38→22:34)
[2020-08-24] MEDS: CYANOCOBALAMIN 1,000 MCG TABLET (FP) PO SCH (09:39)
[2020-08-24] MEDS: CARVEDILOL 3.125 MG TABLET (FP) PO SCH ×2 (09:39→22:32)
[2020-08-24] MEDS: MIRTAZAPINE 15 MG TABLET (FP) PO SCH (22:33)
[2020-08-24] MEDS: DOCUSATE SODIUM 100 MG CAPSULE (FP) PO SCH (22:34)
[2020-08-25] MEDS: POTASSIUM CHLORIDE 40 MEQ in DEXTROSE 5%-WATER - 1,000 ML IV SCH ×3 (01:26→17:18)
[2020-08-25] MEDS: HEPARIN NA (PORCINE) 5,000 UNITS/ML 1ML VIAL SQ SCH ×3 (06:24→21:37)
[2020-08-25 09:43] LABS: BASO % 0.3 % (0-2.0); EOS % 3.4 % (0-4.5); HEMATOCRIT 30.9 % (32.4-45.2); HEMOGLOBIN 10.4 GM/dL (10.7-15.3); LYMPH % 12.2 % (8-40); MCH 34.1 pg (25.7-33.7); MCHC 33.5 g/dl (32.0-36.0); MEAN CELL VOLUME 101.8 fl (80-96); MEAN PLT VOLUME 8.8 fl (7.5-11.1); MONO % 6.8 % (3.8-10.2); NEUT % 77.3 % (42.8-82.8); PLATELET COUNT 334 K/MM3 (134-434); RBC 3.04 M/mm3 (3.60-5.2); RDW 15.1 % (11.6-15.6); WHITE BLOOD COUNT 10.2 K/mm3 (4.0-10.0)
[2020-08-25 10:00] LABS: POTASSIUM 4.3 mmol/L (3.5-5.1)
[2020-08-25 10:17] LABS: CALCIUM 9.2 mg/dL (8.5-10.1)
[2020-08-25 10:18] LABS: ALBUMIN 1.9 g/dl (3.4-5.0); BLOOD UREA NITROGEN 37.5 mg/dL (7-18)
[2020-08-25 10:21] LABS: CREATININE 1.1 mg/dL (0.55-1.3)
[2020-08-25 10:22] LABS: BILIRUBIN,TOTAL 0.4 mg/dL (0.2-1)
[2020-08-25] MEDS ORDERED: cefTRIAXone SODIUM 1 GM VIAL ONE (10:24)
[2020-08-25] MEDS ORDERED: DEXTROSE 5%-WATER - 50 ML IVPB ONE (10:24)
[2020-08-25] MEDS: CEFTRIAXONE 1 GM in DEXTROSE 5%-WATER - 50 ML IVPB SCH (10:27)
[2020-08-25] MEDS: PANTOPRAZOLE 40 MG TABLET PO SCH (10:28)
[2020-08-25] MEDS: CYANOCOBALAMIN 1,000 MCG TABLET (FP) PO SCH (10:28)
[2020-08-25] MEDS: MEMANTINE HCL 10 MG TABLET (FP) PO SCH ×2 (10:28→21:37)
[2020-08-25] MEDS: CARVEDILOL 3.125 MG TABLET (FP) PO SCH ×2 (10:28→21:36)
[2020-08-25] MEDS: DOCUSATE SODIUM 100 MG CAPSULE (FP) PO SCH (21:35)
[2020-08-25] MEDS: MIRTAZAPINE 15 MG TABLET (FP) PO SCH (21:37)
[2020-08-26] MEDS: HEPARIN NA (PORCINE) 5,000 UNITS/ML 1ML VIAL SQ SCH ×3 (05:44→21:17)
[2020-08-26 08:11] LABS: BASO % 0.2 % (0-2.0); EOS % 2.4 % (0-4.5); HEMATOCRIT 32.6 % (32.4-45.2); HEMOGLOBIN 10.9 GM/dL (10.7-15.3); LYMPH % 17.8 % (8-40); MCHC 33.4 g/dl (32.0-36.0); MEAN CELL VOLUME 101.8 fl (80-96); MEAN PLT VOLUME 8.6 fl (7.5-11.1); MONO % 6.2 % (3.8-10.2); NEUT % 73.4 % (42.8-82.8); PLATELET COUNT 366 K/MM3 (134-434); RBC 3.21 M/mm3 (3.60-5.2)
[2020-08-26 08:24] LABS: POTASSIUM 4.7 mmol/L (3.5-5.1)
[2020-08-26 08:32] LABS: BLOOD UREA NITROGEN 30.8 mg/dL (7-18); CREATININE 1.1 mg/dL (0.55-1.3)
[2020-08-26 08:34] LABS: BILIRUBIN,TOTAL 0.3 mg/dL (0.2-1); TOT PROT 5.2 g/dl (6.4-8.2)
[2020-08-26 08:35] LABS: CALCIUM 9.7 mg/dL (8.5-10.1)
[2020-08-26] MEDS ORDERED: cefTRIAXone SODIUM 1 GM VIAL ONE (10:30)
[2020-08-26] MEDS ORDERED: DEXTROSE 5%-WATER - 50 ML IVPB ONE (10:31)
[2020-08-26] MEDS: MEMANTINE HCL 10 MG TABLET (FP) PO SCH ×2 (10:35→21:13)
[2020-08-26] MEDS: CEFTRIAXONE 1 GM in DEXTROSE 5%-WATER - 50 ML IVPB SCH (10:35)
[2020-08-26] MEDS: CYANOCOBALAMIN 1,000 MCG TABLET (FP) PO SCH (10:35)
[2020-08-26] MEDS: CARVEDILOL 3.125 MG TABLET (FP) PO SCH ×2 (10:35→21:12)
[2020-08-26] MEDS: PANTOPRAZOLE 40 MG TABLET PO SCH (10:36)
[2020-08-26] MEDS: POTASSIUM CHLORIDE 40 MEQ in DEXTROSE 5%-WATER - 1,000 ML IV SCH (10:53)
[2020-08-26 15:04] LABS: ANISOCYTOSIS 1+; MACROCYTOSIS 1+; PLATELET ESTIMATE NORMAL
[2020-08-26] MEDS: MIRTAZAPINE 15 MG TABLET (FP) PO SCH (21:13)
[2020-08-26] MEDS: DOCUSATE SODIUM 100 MG CAPSULE (FP) PO SCH (21:22)
[2020-08-27] MEDS: POTASSIUM CHLORIDE 40 MEQ in DEXTROSE 5%-WATER - 1,000 ML IV SCH (01:05)
[2020-08-27] MEDS: HEPARIN NA (PORCINE) 5,000 UNITS/ML 1ML VIAL SQ SCH ×3 (05:27→21:27)
[2020-08-27] MEDS: MEMANTINE HCL 10 MG TABLET (FP) PO SCH ×2 (09:36→21:29)
[2020-08-27] MEDS: CARVEDILOL 3.125 MG TABLET (FP) PO SCH ×2 (09:37→21:28)
[2020-08-27] MEDS: CYANOCOBALAMIN 1,000 MCG TABLET (FP) PO SCH (09:37)
[2020-08-27] MEDS: PANTOPRAZOLE 40 MG TABLET PO SCH (09:37)
[2020-08-27] MEDS ORDERED: PT OWN MED DRAWER 7, Y5N ONE ×3 (09:42→21:01)
[2020-08-27] MEDS: CEFUROXIME AXETIL 250 MG TABLET PO SCH ×2 (13:29→21:29)
[2020-08-27 14:14] LABS: BASO % 0.5 % (0-2.0); EOS % 2.4 % (0-4.5); HEMATOCRIT 33.3 % (32.4-45.2); MCH 33.8 pg (25.7-33.7); MCHC 33.1 g/dl (32.0-36.0); MEAN CELL VOLUME 101.9 fl (80-96); MEAN PLT VOLUME 8.2 fl (7.5-11.1); MONO % 5.8 % (3.8-10.2); NEUT % 76.3 % (42.8-82.8); PLATELET COUNT 426 K/MM3 (134-434); RBC 3.27 M/mm3 (3.60-5.2); RDW 14.7 % (11.6-15.6); WHITE BLOOD COUNT 7.2 K/mm3 (4.0-10.0)
[2020-08-27 14:31] LABS: CALCIUM 9.7 mg/dL (8.5-10.1); POTASSIUM 5.3 mmol/L (3.5-5.1)
[2020-08-27 14:32] LABS: BLOOD UREA NITROGEN 23.7 mg/dL (7-18)
[2020-08-27 14:35] LABS: CREATININE 1.1 mg/dL (0.55-1.3)
[2020-08-27] MEDS ORDERED: AMINO ACIDS 4.25%/D5W 1,000 ML IV SCH ×2 (15:15→15:58)
[2020-08-27 15:40] LABS: ANISOCYTOSIS 1+; MACROCYTOSIS 1+; PLATELET ESTIMATE NORMAL
[2020-08-27] MEDS ORDERED: SODIUM ZIRCONIUM CYCLOSILICATE (LOKELMA) 5 GM PACKET PO ONE (15:58)
[2020-08-27] MEDS: DOCUSATE SODIUM 100 MG CAPSULE (FP) PO SCH (21:28)
[2020-08-27] MEDS: MIRTAZAPINE 15 MG TABLET (FP) PO SCH (21:29)
[2020-08-28] MEDS: HEPARIN NA (PORCINE) 5,000 UNITS/ML 1ML VIAL SQ SCH ×2 (05:55→13:01)
[2020-08-28 08:10] LABS: BASO % 0.6 % (0-2.0); EOS % 1.7 % (0-4.5); HEMATOCRIT 28.3 % (32.4-45.2); HEMOGLOBIN 9.1 GM/dL (10.7-15.3); LYMPH % 19.3 % (8-40); MCH 33.2 pg (25.7-33.7); MCHC 32.2 g/dl (32.0-36.0); MEAN CELL VOLUME 103.2 fl (80-96); MEAN PLT VOLUME 8.6 fl (7.5-11.1); MONO % 10.4 % (3.8-10.2); PLATELET COUNT 434 K/MM3 (134-434); RBC 2.74 M/mm3 (3.60-5.2); RDW 14.9 % (11.6-15.6); WHITE BLOOD COUNT 7.8 K/mm3 (4.0-10.0)
[2020-08-28 08:42] LABS: POTASSIUM 4.3 mmol/L (3.5-5.1)
[2020-08-28 08:51] LABS: ALBUMIN 1.9 g/dl (3.4-5.0); BLOOD UREA NITROGEN 36.4 mg/dL (7-18); CALCIUM 9.3 mg/dL (8.5-10.1)
[2020-08-28 08:55] LABS: BILIRUBIN,TOTAL 0.2 mg/dL (0.2-1); TOT PROT 5.3 g/dl (6.4-8.2)
[2020-08-28] MEDS: CEFUROXIME AXETIL 250 MG TABLET PO SCH (09:14)
[2020-08-28] MEDS: CARVEDILOL 3.125 MG TABLET (FP) PO SCH (09:14)
[2020-08-28] MEDS: CYANOCOBALAMIN 1,000 MCG TABLET (FP) PO SCH (09:15)
[2020-08-28] MEDS: PANTOPRAZOLE 40 MG TABLET PO SCH (09:15)
[2020-08-28] MEDS: MEMANTINE HCL 10 MG TABLET (FP) PO SCH (09:15)
[2020-08-28 11:31] LABS: ANISOCYTOSIS 1+; MACROCYTOSIS 0; PLATELET ESTIMATE NORMAL
[2020-08-28] MEDS ORDERED: IRON SUCROSE INJECTION 200 MG in SODIUM CHLORIDE 90 ML IVPB ONE (12:00)
[2020-08-28] MEDS ORDERED: PT OWN MED DRAWER 7, Y5N ONE (14:33)
[2020-08-28 15:59] VITALS: BP 116/73; PULSE 102; TEMP 98.7
== END 2020-08-28 16:42 | DRG 871 ==
LOC: JER 13:27 → JERBED 17:45 → J8W 22:42
PROVIDERS: ADMIT Internal Medicine; ATTEND Internal Medicine
DX: A41.51 Sepsis due to Escherichia coli [E. coli] (principal); R53.2 Functional quadriplegia; G93.41 Metabolic encephalopathy; N39.0 Urinary tract infection, site not specified; E87.2 Acidosis; N17.9 Acute kidney failure, unspecified; E44.0 Moderate protein-calorie malnutrition; Z68.1 Body mass index [BMI] 19.9 or less, adult; E87.0 Hyperosmolality and hypernatremia; R64 Cachexia; D72.829 Elevated white blood cell count, unspecified; F03.90 Unspecified dementia, unspecified severity, without behavioral disturbance, psychotic disturbance, mood disturbance, and anxiety; E86.0 Dehydration; I10 Essential (primary) hypertension; E21.3 Hyperparathyroidism, unspecified; E87.5 Hyperkalemia; D50.9 Iron deficiency anemia, unspecified; E83.42 Hypomagnesemia; B96.20 Unspecified Escherichia coli [E. coli] as the cause of diseases classified elsewhere; Z68.20 Body mass index [BMI] 20.0-20.9, adult
CPT/HCPCS: 36415; 70450-TC; 71045-TC-FY; 76775-TC; 80048; 80053; 81003; 82565; 82607; 82728; 83540; 83550; 83605; 83735; 83930; 83935; 84100; 84156; 84300; 84484; 85025; 85610; 85730; 87040; 87086; 87186; 87804; 93005; 93010; 97116-GP; 97162-GP; 99285-25; C9803; J1644; J1756; U0003

== ENCOUNTER 2020-08-28 19:47 | Inpatient (IN) | payer OTHER, BC ==
[2020-08-28 20:14] VITALS: BMI 26.4
[2020-08-28] MEDS ORDERED: ACETAMINOPHEN 325 MG TABLET (FP) PO PRN (20:43)
[2020-08-28] MEDS: CEFUROXIME AXETIL 250 MG TABLET PO SCH (22:09)
[2020-08-28] MEDS: CARVEDILOL 6.25 MG TABLET (FP) PO SCH (22:09)
[2020-08-28] MEDS: MIRTAZAPINE 15 MG TABLET (FP) PO SCH (22:10)
[2020-08-28] MEDS: MEMANTINE HCL 10 MG TABLET (FP) PO SCH (22:10)
[2020-08-28] MEDS ORDERED: HEPARIN NA (PORCINE) 5,000 UNITS/ML 1ML VIAL ONE (22:11)
[2020-08-28] MEDS: HEPARIN NA (PORCINE) 5,000 UNITS/ML 1ML VIAL SQ SCH (22:14)
[2020-08-29] MEDS: AMINO ACIDS 4.25%/D5W 1,000 ML IV SCH ×3 (00:27→23:09)
[2020-08-29] MEDS: HEPARIN NA (PORCINE) 5,000 UNITS/ML 1ML VIAL SQ SCH ×3 (05:11→21:49)
[2020-08-29] MEDS: POLYETHYLENE GLYCOL 3350 119 GM BTL PO SCH (10:20)
[2020-08-29] MEDS: MEMANTINE HCL 10 MG TABLET (FP) PO SCH ×2 (10:20→21:49)
[2020-08-29] MEDS: CEFUROXIME AXETIL 250 MG TABLET PO SCH ×2 (10:20→21:49)
[2020-08-29] MEDS: CARVEDILOL 6.25 MG TABLET (FP) PO SCH ×2 (10:20→21:49)
[2020-08-29] MEDS: PANTOPRAZOLE 40 MG TABLET PO SCH (10:21)
[2020-08-29] MEDS: CYANOCOBALAMIN 1,000 MCG TABLET (FP) PO SCH (10:21)
[2020-08-29] MEDS: MIRTAZAPINE 15 MG TABLET (FP) PO SCH (21:49)
[2020-08-30] MEDS: HEPARIN NA (PORCINE) 5,000 UNITS/ML 1ML VIAL SQ SCH (05:35)
[2020-08-30] MEDS: AMINO ACIDS 4.25%/D5W 1,000 ML IV SCH ×2 (06:15→16:51)
[2020-08-30] MEDS: CEFUROXIME AXETIL 250 MG TABLET PO SCH (10:39)
[2020-08-30] MEDS: MEMANTINE HCL 10 MG TABLET (FP) PO SCH ×2 (10:39→21:50)
[2020-08-30] MEDS: CARVEDILOL 6.25 MG TABLET (FP) PO SCH ×2 (10:39→21:50)
[2020-08-30] MEDS: PANTOPRAZOLE 40 MG TABLET PO SCH (10:39)
[2020-08-30] MEDS: CYANOCOBALAMIN 1,000 MCG TABLET (FP) PO SCH (10:39)
[2020-08-30] MEDS: POLYETHYLENE GLYCOL 3350 119 GM BTL PO SCH (10:40)
[2020-08-30 10:42] LABS: BASO % 0.8 % (0-2.0); EOS % 1.3 % (0-4.5); HEMATOCRIT 18.4 % (32.4-45.2); LYMPH % 21.9 % (8-40); MCH 34.1 pg (25.7-33.7); MCHC 33.1 g/dl (32.0-36.0); MEAN PLT VOLUME 7.8 fl (7.5-11.1); MONO % 10.3 % (3.8-10.2); NEUT % 65.7 % (42.8-82.8); PLATELET COUNT 556 K/MM3 (134-434); RBC 1.78 M/mm3 (3.60-5.2); RDW 15.1 % (11.6-15.6); WHITE BLOOD COUNT 5.6 K/mm3 (4.0-10.0)
[2020-08-30 10:50] LABS: HEMOGLOBIN 6.1 GM/dL (10.7-15.3)
[2020-08-30 10:59] LABS: POTASSIUM 4.8 mmol/L (3.5-5.1)
[2020-08-30 11:03] LABS: ALBUMIN 1.6 g/dl (3.4-5.0); BLOOD UREA NITROGEN 32.8 mg/dL (7-18); CALCIUM 8.8 mg/dL (8.5-10.1)
[2020-08-30 11:07] LABS: CREATININE 0.8 mg/dL (0.55-1.3)
[2020-08-30 11:08] LABS: BILIRUBIN,TOTAL 0.5 mg/dL (0.2-1); TOT PROT 4.5 g/dl (6.4-8.2)
[2020-08-30] MEDS: PANTOPRAZOLE SODIUM 40 MG VIAL IVPUSH SCH (13:15)
[2020-08-30 14:28] LABS: BASO % 0.6 % (0-2.0); EOS % 1.5 % (0-4.5); HEMATOCRIT 29.2 % (32.4-45.2); HEMOGLOBIN 9.8 GM/dL (10.7-15.3); MCH 34.4 pg (25.7-33.7); MCHC 33.7 g/dl (32.0-36.0); MEAN CELL VOLUME 102.1 fl (80-96); MONO % 13.7 % (3.8-10.2); NEUT % 67.2 % (42.8-82.8); PLATELET COUNT 417 K/MM3 (134-434); RBC 2.86 M/mm3 (3.60-5.2); RDW 14.9 % (11.6-15.6)
[2020-08-30 15:06] LABS: PLATELET ESTIMATE NORMAL
[2020-08-30 15:07] LABS: MACROCYTOSIS 1+
[2020-08-30 15:08] LABS: ANISOCYTOSIS 1+
[2020-08-30] MEDS: INSULIN SLIDING SCALE (NOVOLOG) 1 VIAL SQ SCH (17:22)
[2020-08-30] MEDS: MIRTAZAPINE 15 MG TABLET (FP) PO SCH (21:50)
[2020-08-31] MEDS: AMINO ACIDS 4.25%/D5W 1,000 ML IV SCH ×3 (01:05→16:56)
[2020-08-31] MEDS: INSULIN SLIDING SCALE (NOVOLOG) 1 VIAL SQ SCH ×3 (06:34→16:56)
[2020-08-31] MEDS: PANTOPRAZOLE SODIUM 40 MG VIAL IVPUSH SCH (11:36)
[2020-08-31] MEDS: POLYETHYLENE GLYCOL 3350 119 GM BTL PO SCH (11:39)
[2020-08-31] MEDS: MEMANTINE HCL 10 MG TABLET (FP) PO SCH ×2 (11:39→21:54)
[2020-08-31] MEDS: CARVEDILOL 6.25 MG TABLET (FP) PO SCH ×2 (11:39→21:53)
[2020-08-31] MEDS: CYANOCOBALAMIN 1,000 MCG TABLET (FP) PO SCH (11:39)
[2020-08-31] MEDS: MIRTAZAPINE 15 MG TABLET (FP) PO SCH (22:00)
[2020-09-01] MEDS: INSULIN SLIDING SCALE (NOVOLOG) 1 VIAL SQ SCH ×3 (06:59→16:57)
[2020-09-01] MEDS: AMINO ACIDS 4.25%/D5W 1,000 ML IV SCH ×3 (07:00→21:18)
[2020-09-01] MEDS: CARVEDILOL 6.25 MG TABLET (FP) PO SCH ×2 (11:19→21:17)
[2020-09-01] MEDS: CYANOCOBALAMIN 1,000 MCG TABLET (FP) PO SCH (11:19)
[2020-09-01] MEDS: MEMANTINE HCL 10 MG TABLET (FP) PO SCH ×2 (11:19→21:17)
[2020-09-01] MEDS: PANTOPRAZOLE SODIUM 40 MG VIAL IVPUSH SCH (11:19)
[2020-09-01] MEDS: POLYETHYLENE GLYCOL 3350 119 GM BTL PO SCH (11:20)
[2020-09-01] MEDS: MIRTAZAPINE 15 MG TABLET (FP) PO SCH (21:16)
[2020-09-02] MEDS: AMINO ACIDS 4.25%/D5W 1,000 ML IV SCH ×2 (01:00→13:22)
[2020-09-02] MEDS: INSULIN SLIDING SCALE (NOVOLOG) 1 VIAL SQ SCH ×3 (06:27→18:19)
[2020-09-02] MEDS: MEMANTINE HCL 10 MG TABLET (FP) PO SCH ×2 (10:34→21:52)
[2020-09-02] MEDS: CARVEDILOL 6.25 MG TABLET (FP) PO SCH ×2 (10:34→21:51)
[2020-09-02] MEDS: PANTOPRAZOLE SODIUM 40 MG VIAL IVPUSH SCH (10:35)
[2020-09-02] MEDS: POLYETHYLENE GLYCOL 3350 119 GM BTL PO SCH (10:35)
[2020-09-02] MEDS: CYANOCOBALAMIN 1,000 MCG TABLET (FP) PO SCH (10:35)
[2020-09-02] MEDS: MIRTAZAPINE 15 MG TABLET (FP) PO SCH (21:51)
[2020-09-03] MEDS: AMINO ACIDS 4.25%/D5W 1,000 ML IV SCH ×3 (06:27→14:54)
[2020-09-03] MEDS: INSULIN SLIDING SCALE (NOVOLOG) 1 VIAL SQ SCH ×3 (06:28→17:47)
[2020-09-03] MEDS: CYANOCOBALAMIN 1,000 MCG TABLET (FP) PO SCH (09:28)
[2020-09-03] MEDS: PANTOPRAZOLE SODIUM 40 MG VIAL IVPUSH SCH (09:28)
[2020-09-03] MEDS: CARVEDILOL 6.25 MG TABLET (FP) PO SCH ×2 (09:29→21:40)
[2020-09-03] MEDS: MEMANTINE HCL 10 MG TABLET (FP) PO SCH ×2 (09:29→21:40)
[2020-09-03] MEDS: POLYETHYLENE GLYCOL 3350 119 GM BTL PO SCH (09:29)
[2020-09-03] MEDS ORDERED: AMINO ACIDS 4.25%/D5W 1,000 ML IV SCH (14:37)
[2020-09-03] MEDS: FAT EMULSION/OLIVE/SOY/PHOSPHO 250 ML IV SCH (21:40)
[2020-09-03] MEDS: MIRTAZAPINE 15 MG TABLET (FP) PO SCH (21:40)
[2020-09-03] MEDS ORDERED: FAT EMULSIONS 20% 250 ML PREMIX INFUS.BAG IV SCH (22:00)
[2020-09-04] MEDS: INSULIN SLIDING SCALE (NOVOLOG) 1 VIAL SQ SCH ×3 (07:42→17:34)
[2020-09-04] MEDS: AMINO ACIDS 4.25%/D5W 1,000 ML IV SCH ×2 (07:42→22:59)
[2020-09-04] MEDS: PANTOPRAZOLE SODIUM 40 MG VIAL IVPUSH SCH (10:48)
[2020-09-04] MEDS: CARVEDILOL 6.25 MG TABLET (FP) PO SCH ×2 (10:48→22:59)
[2020-09-04] MEDS: CYANOCOBALAMIN 1,000 MCG TABLET (FP) PO SCH (10:48)
[2020-09-04] MEDS: POLYETHYLENE GLYCOL 3350 119 GM BTL PO SCH (10:49)
[2020-09-04] MEDS: MEMANTINE HCL 10 MG TABLET (FP) PO SCH ×2 (10:49→22:59)
[2020-09-04 14:22] LABS: BASO % 0.4 % (0-2.0); EOS % 0.6 % (0-4.5); HEMATOCRIT 29.1 % (32.4-45.2); LYMPH % 12.7 % (8-40); MCH 34.1 pg (25.7-33.7); MCHC 34.3 g/dl (32.0-36.0); MEAN CELL VOLUME 99.4 fl (80-96); MEAN PLT VOLUME 7.1 fl (7.5-11.1); MONO % 8.7 % (3.8-10.2); NEUT % 77.6 % (42.8-82.8); PLATELET COUNT 404 K/MM3 (134-434); RBC 2.93 M/mm3 (3.60-5.2); RDW 14.7 % (11.6-15.6); WHITE BLOOD COUNT 8.4 K/mm3 (4.0-10.0)
[2020-09-04 14:47] LABS: POTASSIUM 3.6 mmol/L (3.5-5.1)
[2020-09-04 14:50] LABS: ALBUMIN 1.9 g/dl (3.4-5.0); CALCIUM 10.2 mg/dL (8.5-10.1)
[2020-09-04 14:51] LABS: BLOOD UREA NITROGEN 47.2 mg/dL (7-18)
[2020-09-04 14:54] LABS: CREATININE 0.9 mg/dL (0.55-1.3)
[2020-09-04 14:55] LABS: BILIRUBIN,TOTAL 0.1 mg/dL (0.2-1); TOT PROT 5.7 g/dl (6.4-8.2)
[2020-09-04] MEDS: CEFTRIAXONE 1 GM in DEXTROSE 5%-WATER - 50 ML IVPB SCH (15:10)
[2020-09-04 15:21] LABS: ANISOCYTOSIS 1+; MACROCYTOSIS 1+; PLATELET ESTIMATE NORMAL
[2020-09-04] MEDS ORDERED: POLYETHYLENE GLYCOL 3350 119 GM BTL PO PRN (16:04)
[2020-09-04] MEDS ORDERED: POLYETHYLENE GLYCOL 3350 119 GM BTL PO SCH (16:15)
[2020-09-04] MEDS: FAT EMULSION/OLIVE/SOY/PHOSPHO 250 ML IV SCH (22:59)
[2020-09-04] MEDS: MIRTAZAPINE 15 MG TABLET (FP) PO SCH (22:59)
[2020-09-05] MEDS ORDERED: HEPARIN NA (PORCINE) 5,000 UNITS/ML 1ML VIAL ONE (05:26)
[2020-09-05] MEDS: INSULIN SLIDING SCALE (NOVOLOG) 1 VIAL SQ SCH ×3 (06:00→17:18)
[2020-09-05] MEDS: CYANOCOBALAMIN 1,000 MCG TABLET (FP) PO SCH (10:34)
[2020-09-05] MEDS: MEMANTINE HCL 10 MG TABLET (FP) PO SCH ×2 (10:34→21:32)
[2020-09-05] MEDS: CARVEDILOL 6.25 MG TABLET (FP) PO SCH ×2 (10:34→21:32)
[2020-09-05] MEDS: CEFTRIAXONE 1 GM in DEXTROSE 5%-WATER - 50 ML IVPB SCH (10:36)
[2020-09-05] MEDS: PANTOPRAZOLE SODIUM 40 MG VIAL IVPUSH SCH (10:36)
[2020-09-05] MEDS ORDERED: INSULIN SLIDING SCALE (NOVOLOG) 1 VIAL SQ SCH (12:46)
[2020-09-05] MEDS: AMINO ACIDS 4.25%/D5W 1,000 ML IV SCH (16:17)
[2020-09-05 20:56] LABS: PH,URINE 6.5 (5.0-8.0); URINE APPEARANCE CLEAR; URINE BILIRUBIN NEGATIVE (NEGATIVE); URINE COLOR YELLOW; URINE GLUCOSE (UA) NEGATIVE (NEGATIVE); URINE KETONE NEGATIVE (NEGATIVE); URINE LEUK ESTERASE NEGATIVE (NEGATIVE); URINE NITRITE NEGATIVE (NEGATIVE); URINE PROTEIN NEGATIVE (NEGATIVE); URINE UROBILINOGEN 0.2 mg/dL (0.2-1.0)
[2020-09-05] MEDS: FAT EMULSION/OLIVE/SOY/PHOSPHO 250 ML IV SCH (21:32)
[2020-09-05] MEDS: MIRTAZAPINE 15 MG TABLET (FP) PO SCH (21:32)
[2020-09-06] MEDS: AMINO ACIDS 4.25%/D5W 1,000 ML IV SCH ×3 (05:53→22:19)
[2020-09-06] MEDS: INSULIN SLIDING SCALE (NOVOLOG) 1 VIAL SQ SCH ×2 (06:13→16:49)
[2020-09-06] MEDS: CARVEDILOL 6.25 MG TABLET (FP) PO SCH (10:55)
[2020-09-06] MEDS: MEMANTINE HCL 10 MG TABLET (FP) PO SCH ×2 (10:55→22:18)
[2020-09-06] MEDS: CYANOCOBALAMIN 1,000 MCG TABLET (FP) PO SCH (10:55)
[2020-09-06] MEDS: PANTOPRAZOLE SODIUM 40 MG VIAL IVPUSH SCH (10:55)
[2020-09-06] MEDS: CEFTRIAXONE 1 GM in DEXTROSE 5%-WATER - 50 ML IVPB SCH (12:41)
[2020-09-06] MEDS ORDERED: SODIUM CHLORIDE 500 ML IV STA (15:47)
[2020-09-06 17:00] LABS: BASO % 0.2 % (0-2.0); EOS % 0.5 % (0-4.5); HEMATOCRIT 26.6 % (32.4-45.2); HEMOGLOBIN 8.9 GM/dL (10.7-15.3); LYMPH % 9.9 % (8-40); MCH 33.9 pg (25.7-33.7); MCHC 33.7 g/dl (32.0-36.0); MEAN CELL VOLUME 100.6 fl (80-96); MEAN PLT VOLUME 7.2 fl (7.5-11.1); NEUT % 83.4 % (42.8-82.8); PLATELET COUNT 355 K/MM3 (134-434); RBC 2.64 M/mm3 (3.60-5.2); RDW 15.1 % (11.6-15.6); WHITE BLOOD COUNT 8.4 K/mm3 (4.0-10.0)
[2020-09-06 17:07] LABS: POTASSIUM 3.6 mmol/L (3.5-5.1)
[2020-09-06 17:08] LABS: CALCIUM 10.1 mg/dL (8.5-10.1)
[2020-09-06 17:09] LABS: ALBUMIN 1.6 g/dl (3.4-5.0); BLOOD UREA NITROGEN 47.1 mg/dL (7-18); MAGNESIUM 1.4 mg/dL (1.8-2.4)
[2020-09-06 17:12] LABS: CREATININE 0.8 mg/dL (0.55-1.3); PHOSPHOROUS 1.7 mg/dL (2.5-4.9)
[2020-09-06 17:14] LABS: BILIRUBIN,TOTAL 0.2 mg/dL (0.2-1); TOT PROT 4.9 g/dl (6.4-8.2)
[2020-09-06 18:06] LABS: ANISOCYTOSIS 2+; MACROCYTOSIS 0; PLATELET ESTIMATE NORMAL
[2020-09-06] MEDS ORDERED: D5-1/2NS+10 MEQ KCL - 10 MEQ/1,000 ML INFUS.BAG IV SCH (19:00)
[2020-09-06] MEDS: MIRTAZAPINE 15 MG TABLET (FP) PO SCH (22:18)
[2020-09-06] MEDS: FAT EMULSION/OLIVE/SOY/PHOSPHO 250 ML IV SCH (22:19)
[2020-09-07] MEDS: INSULIN SLIDING SCALE (NOVOLOG) 1 VIAL SQ SCH ×2 (06:34→17:21)
[2020-09-07] MEDS ORDERED: ACETAMINOPHEN 325 MG TABLET (FP) PO PRN (07:31)
[2020-09-07] MEDS ORDERED: MAGNESIUM SULF 50% (8.12 MEQ/2 ML-1 GM VIAL) IVPB ONE (09:10)
[2020-09-07] MEDS ORDERED: POTASSIUM CHLORIDE 10 MEQ in SODIUM CHLORIDE 0.45% 1,000 ML IVPB SCH (09:15)
[2020-09-07] MEDS ORDERED: DEXTROSE 5%-WATER - 50 ML IVPB ONE (09:29)
[2020-09-07] MEDS ORDERED: cefTRIAXone SODIUM 1 GM VIAL ONE (09:29)
[2020-09-07] MEDS ORDERED: D5-1/2NS+10 MEQ KCL - 10 MEQ/1,000 ML INFUS.BAG IV SCH (09:30)
[2020-09-07] MEDS ORDERED: POTASSIUM PHOSPHATE 30 MM in SODIUM CHLORIDE 500 ML IVPB ONE (10:00)
[2020-09-07] MEDS: PANTOPRAZOLE SODIUM 40 MG VIAL IVPUSH SCH (10:29)
[2020-09-07] MEDS: CEFTRIAXONE 1 GM in DEXTROSE 5%-WATER - 50 ML IVPB SCH (10:29)
[2020-09-07] MEDS: MEMANTINE HCL 10 MG TABLET (FP) PO SCH ×2 (10:30→23:15)
[2020-09-07] MEDS: CYANOCOBALAMIN 1,000 MCG TABLET (FP) PO SCH (10:30)
[2020-09-07] MEDS ORDERED: AMINO ACIDS 4.25%/D5W 1,000 ML IV SCH ×2 (14:53→15:00)
[2020-09-07] MEDS ORDERED: PT OWN MED DRAWER 7, Y5N ONE (22:24)
[2020-09-07] MEDS: MIRTAZAPINE 15 MG TABLET (FP) PO SCH (23:15)
[2020-09-07] MEDS: FAT EMULSION/OLIVE/SOY/PHOSPHO 250 ML IV SCH (23:24)
[2020-09-08] MEDS: AMINO ACIDS 4.25%/D5W 1,000 ML IV SCH (02:00)
[2020-09-08 07:58] LABS: BASO % 0.3 % (0-2.0); EOS % 0.7 % (0-4.5); HEMATOCRIT 30.8 % (32.4-45.2); HEMOGLOBIN 10.8 GM/dL (10.7-15.3); LYMPH % 8.5 % (8-40); MCH 34.8 pg (25.7-33.7); MCHC 35.2 g/dl (32.0-36.0); MEAN CELL VOLUME 98.6 fl (80-96); MEAN PLT VOLUME 6.9 fl (7.5-11.1); MONO % 5.2 % (3.8-10.2); NEUT % 85.3 % (42.8-82.8); PLATELET COUNT 415 K/MM3 (134-434); RBC 3.12 M/mm3 (3.60-5.2); RDW 15.1 % (11.6-15.6)
[2020-09-08] MEDS: INSULIN SLIDING SCALE (NOVOLOG) 1 VIAL SQ SCH ×2 (08:14→16:59)
[2020-09-08 08:17] LABS: POTASSIUM 3.4 mmol/L (3.5-5.1)
[2020-09-08 08:22] LABS: ALBUMIN 1.9 g/dl (3.4-5.0); CALCIUM 9.6 mg/dL (8.5-10.1)
[2020-09-08 08:23] LABS: BLOOD UREA NITROGEN 22.3 mg/dL (7-18); MAGNESIUM 1.9 mg/dL (1.8-2.4)
[2020-09-08 08:26] LABS: CREATININE 0.5 mg/dL (0.55-1.3); PHOSPHOROUS 1.6 mg/dL (2.5-4.9)
[2020-09-08 08:32] LABS: BILIRUBIN,TOTAL 0.2 mg/dL (0.2-1)
[2020-09-08] MEDS ORDERED: DEXTROSE 5%-WATER - 50 ML IVPB ONE (09:24)
[2020-09-08] MEDS ORDERED: cefTRIAXone SODIUM 1 GM VIAL ONE (09:24)
[2020-09-08] MEDS ORDERED: POTASSIUM PHOSPHATE 30 MM in SODIUM CHLORIDE 500 ML IVPB ONE (09:30)
[2020-09-08] MEDS: KCL 10 MEQ IVPB 10 MEQ/100 ML INFUS.BAG IVPB SCH ×3 (10:17→13:51)
[2020-09-08] MEDS: PANTOPRAZOLE SODIUM 40 MG VIAL IVPUSH SCH (10:18)
[2020-09-08] MEDS: CYANOCOBALAMIN 1,000 MCG TABLET (FP) PO SCH (10:18)
[2020-09-08] MEDS: CEFTRIAXONE 1 GM in DEXTROSE 5%-WATER - 50 ML IVPB SCH (10:18)
[2020-09-08] MEDS: MEMANTINE HCL 10 MG TABLET (FP) PO SCH ×2 (10:19→22:04)
[2020-09-08 13:11] LABS: ANISOCYTOSIS 1+; MACROCYTOSIS 1+; PLATELET ESTIMATE NORMAL
[2020-09-08] MEDS ORDERED: PT OWN MED DRAWER 7, Y5N ONE (21:40)
[2020-09-08] MEDS: MIRTAZAPINE 15 MG TABLET (FP) PO SCH (22:04)
[2020-09-08] MEDS: FAT EMULSION/OLIVE/SOY/PHOSPHO 250 ML IV SCH (22:05)
[2020-09-09] MEDS: AMINO ACIDS 4.25%/D5W 1,000 ML IV SCH (02:03)
[2020-09-09] MEDS: INSULIN SLIDING SCALE (NOVOLOG) 1 VIAL SQ SCH ×2 (06:12→16:36)
[2020-09-09] MEDS ORDERED: cefTRIAXone SODIUM 1 GM VIAL ONE (08:28)
[2020-09-09] MEDS ORDERED: DEXTROSE 5%-WATER - 50 ML IVPB ONE (08:28)
[2020-09-09] MEDS: MEMANTINE HCL 10 MG TABLET (FP) PO SCH ×2 (09:20→21:54)
[2020-09-09] MEDS: PANTOPRAZOLE SODIUM 40 MG VIAL IVPUSH SCH (09:20)
[2020-09-09] MEDS: CYANOCOBALAMIN 1,000 MCG TABLET (FP) PO SCH (09:20)
[2020-09-09] MEDS: CEFTRIAXONE 1 GM in DEXTROSE 5%-WATER - 50 ML IVPB SCH (09:23)
[2020-09-09] MEDS: POLYETHYLENE GLYCOL 3350 119 GM BTL PO PRN ×2 (09:24→17:07)
[2020-09-09 11:23] LABS: BASO % 0.5 % (0-2.0); EOS % 1.2 % (0-4.5); HEMATOCRIT 27.9 % (32.4-45.2); HEMOGLOBIN 9.6 GM/dL (10.7-15.3); LYMPH % 14.5 % (8-40); MCHC 34.4 g/dl (32.0-36.0); MEAN CELL VOLUME 98.8 fl (80-96); MONO % 7.5 % (3.8-10.2); NEUT % 76.3 % (42.8-82.8); PLATELET COUNT 363 K/MM3 (134-434); RBC 2.83 M/mm3 (3.60-5.2); WHITE BLOOD COUNT 7.5 K/mm3 (4.0-10.0)
[2020-09-09 11:43] LABS: POTASSIUM 4.5 mmol/L (3.5-5.1)
[2020-09-09 11:47] LABS: CALCIUM 9.5 mg/dL (8.5-10.1)
[2020-09-09 11:48] LABS: ALBUMIN 1.6 g/dl (3.4-5.0); BLOOD UREA NITROGEN 19.1 mg/dL (7-18); MAGNESIUM 1.7 mg/dL (1.8-2.4)
[2020-09-09 11:51] LABS: CREATININE 0.6 mg/dL (0.55-1.3); PHOSPHOROUS 1.9 mg/dL (2.5-4.9)
[2020-09-09 11:52] LABS: BILIRUBIN,TOTAL 0.6 mg/dL (0.2-1)
[2020-09-09 11:53] LABS: TOT PROT 5.2 g/dl (6.4-8.2)
[2020-09-09] MEDS ORDERED: MAGNESIUM SULF 50% (8.12 MEQ/2 ML-1 GM VIAL) IVPB ONE (14:21)
[2020-09-09] MEDS ORDERED: POTASSIUM PHOSPHATE 30 MM in SODIUM CHLORIDE 500 ML IVPB ONE (16:00)
[2020-09-09] MEDS: MIRTAZAPINE 15 MG TABLET (FP) PO SCH (21:54)
[2020-09-10] MEDS: FAT EMULSION/OLIVE/SOY/PHOSPHO 250 ML IV SCH ×2 (01:15→21:59)
[2020-09-10] MEDS ORDERED: PT OWN MED DRAWER 7, Y5N ONE (01:18)
[2020-09-10] MEDS: AMINO ACIDS 4.25%/D5W 1,000 ML IV SCH (04:32)
[2020-09-10] MEDS: INSULIN SLIDING SCALE (NOVOLOG) 1 VIAL SQ SCH ×2 (06:52→16:24)
[2020-09-10 08:11] LABS: BASO % 0.3 % (0-2.0); HEMATOCRIT 28.8 % (32.4-45.2); HEMOGLOBIN 9.9 GM/dL (10.7-15.3); LYMPH % 13.3 % (8-40); MCH 33.8 pg (25.7-33.7); MCHC 34.3 g/dl (32.0-36.0); MEAN CELL VOLUME 98.7 fl (80-96); MEAN PLT VOLUME 7.1 fl (7.5-11.1); MONO % 7.7 % (3.8-10.2); NEUT % 77.7 % (42.8-82.8); PLATELET COUNT 361 K/MM3 (134-434); RBC 2.92 M/mm3 (3.60-5.2); WHITE BLOOD COUNT 6.3 K/mm3 (4.0-10.0)
[2020-09-10 08:23] LABS: POTASSIUM 4.9 mmol/L (3.5-5.1)
[2020-09-10 08:26] LABS: ALBUMIN 1.8 g/dl (3.4-5.0); CALCIUM 9.4 mg/dL (8.5-10.1)
[2020-09-10 08:27] LABS: MAGNESIUM 2.1 mg/dL (1.8-2.4)
[2020-09-10 08:30] LABS: CREATININE 0.5 mg/dL (0.55-1.3); PHOSPHOROUS 2.2 mg/dL (2.5-4.9)
[2020-09-10 08:31] LABS: BILIRUBIN,TOTAL 0.8 mg/dL (0.2-1); TOT PROT 5.6 g/dl (6.4-8.2)
[2020-09-10] MEDS ORDERED: cefTRIAXone SODIUM 1 GM VIAL ONE (08:36)
[2020-09-10] MEDS ORDERED: DEXTROSE 5%-WATER - 50 ML IVPB ONE (08:37)
[2020-09-10] MEDS: CYANOCOBALAMIN 1,000 MCG TABLET (FP) PO SCH (09:47)
[2020-09-10] MEDS: PANTOPRAZOLE SODIUM 40 MG VIAL IVPUSH SCH (09:47)
[2020-09-10] MEDS: MEMANTINE HCL 10 MG TABLET (FP) PO SCH ×2 (09:47→22:06)
[2020-09-10] MEDS: CEFTRIAXONE 1 GM in DEXTROSE 5%-WATER - 50 ML IVPB SCH (09:47)
[2020-09-10 10:12] LABS: ANISOCYTOSIS 1+; MACROCYTOSIS 1+; PLATELET ESTIMATE NORMAL
[2020-09-10] MEDS ORDERED: SODIUM PHOSPHATE - 30 MM in SODIUM CHLORIDE 500 ML IVPB ONE (10:30)
[2020-09-10] MEDS: MIRTAZAPINE 15 MG TABLET (FP) PO SCH (22:06)
[2020-09-11] MEDS: INSULIN SLIDING SCALE (NOVOLOG) 1 VIAL SQ SCH ×2 (06:33→17:00)
[2020-09-11] MEDS: AMINO ACIDS 4.25%/D5W 1,000 ML IV SCH (06:33)
[2020-09-11 08:34] LABS: BASO % 0.5 % (0-2.0); EOS % 1.5 % (0-4.5); HEMATOCRIT 27.3 % (32.4-45.2); HEMOGLOBIN 9.9 GM/dL (10.7-15.3); LYMPH % 9.8 % (8-40); MCH 35.8 pg (25.7-33.7); MCHC 36.2 g/dl (32.0-36.0); MEAN CELL VOLUME 98.8 fl (80-96); MEAN PLT VOLUME 6.9 fl (7.5-11.1); MONO % 9.9 % (3.8-10.2); NEUT % 78.3 % (42.8-82.8); PLATELET COUNT 369 K/MM3 (134-434); RBC 2.76 M/mm3 (3.60-5.2); RDW 15.1 % (11.6-15.6)
[2020-09-11 08:48] LABS: POTASSIUM 4.3 mmol/L (3.5-5.1)
[2020-09-11 09:00] LABS: ALBUMIN 1.5 g/dl (3.4-5.0); BLOOD UREA NITROGEN 21.6 mg/dL (7-18); CALCIUM 9.1 mg/dL (8.5-10.1); MAGNESIUM 1.8 mg/dL (1.8-2.4)
[2020-09-11 09:03] LABS: CREATININE 0.5 mg/dL (0.55-1.3); PHOSPHOROUS 2.2 mg/dL (2.5-4.9)
[2020-09-11 09:04] LABS: BILIRUBIN,TOTAL 0.3 mg/dL (0.2-1); TOT PROT 5.1 g/dl (6.4-8.2)
[2020-09-11] MEDS ORDERED: cefTRIAXone SODIUM 1 GM VIAL ONE (09:32)
[2020-09-11] MEDS ORDERED: DEXTROSE 5%-WATER - 50 ML IVPB ONE (09:33)
[2020-09-11] MEDS ORDERED: MAGNESIUM SULF 50% (8.12 MEQ/2 ML-1 GM VIAL) IVPB ONE (09:58)
[2020-09-11] MEDS ORDERED: SODIUM PHOSPHATE - 30 MM in SODIUM CHLORIDE 500 ML IVPB ONE (09:59)
[2020-09-11] MEDS: MEMANTINE HCL 10 MG TABLET (FP) PO SCH ×2 (11:07→22:20)
[2020-09-11] MEDS: CYANOCOBALAMIN 1,000 MCG TABLET (FP) PO SCH (11:07)
[2020-09-11] MEDS: PANTOPRAZOLE SODIUM 40 MG VIAL IVPUSH SCH (11:07)
[2020-09-11] MEDS: CEFTRIAXONE 1 GM in DEXTROSE 5%-WATER - 50 ML IVPB SCH (11:07)
[2020-09-11 11:22] LABS: ANISOCYTOSIS 1+; MACROCYTOSIS 0; PLATELET ESTIMATE NORMAL
[2020-09-11] MEDS: FAT EMULSION/OLIVE/SOY/PHOSPHO 250 ML IV SCH (22:19)
[2020-09-11] MEDS: MIRTAZAPINE 15 MG TABLET (FP) PO SCH (22:20)
[2020-09-12] MEDS: INSULIN SLIDING SCALE (NOVOLOG) 1 VIAL SQ SCH ×2 (06:35→16:29)
[2020-09-12] MEDS: AMINO ACIDS 4.25%/D5W 1,000 ML IV SCH (06:35)
[2020-09-12 07:54] LABS: BASO % 0.6 % (0-2.0); EOS % 2.4 % (0-4.5); HEMATOCRIT 30.3 % (32.4-45.2); LYMPH % 14.8 % (8-40); MCH 35.8 pg (25.7-33.7); MCHC 36.3 g/dl (32.0-36.0); MEAN CELL VOLUME 98.6 fl (80-96); MEAN PLT VOLUME 7.1 fl (7.5-11.1); NEUT % 69.2 % (42.8-82.8); PLATELET COUNT 350 K/MM3 (134-434); RBC 3.07 M/mm3 (3.60-5.2); RDW 14.8 % (11.6-15.6); WHITE BLOOD COUNT 9.7 K/mm3 (4.0-10.0)
[2020-09-12 08:23] LABS: ALBUMIN 1.6 g/dl (3.4-5.0); CALCIUM 9.3 mg/dL (8.5-10.1)
[2020-09-12 08:24] LABS: BLOOD UREA NITROGEN 20.8 mg/dL (7-18); MAGNESIUM 2.2 mg/dL (1.8-2.4)
[2020-09-12 08:26] LABS: CREATININE 0.5 mg/dL (0.55-1.3); PHOSPHOROUS 2.6 mg/dL (2.5-4.9)
[2020-09-12 08:29] LABS: BILIRUBIN,TOTAL 0.2 mg/dL (0.2-1); TOT PROT 5.2 g/dl (6.4-8.2)
[2020-09-12] MEDS: PANTOPRAZOLE SODIUM 40 MG VIAL IVPUSH SCH (09:42)
[2020-09-12] MEDS: MEMANTINE HCL 10 MG TABLET (FP) PO SCH ×2 (09:43→22:22)
[2020-09-12] MEDS: CYANOCOBALAMIN 1,000 MCG TABLET (FP) PO SCH (09:46)
[2020-09-12] MEDS ORDERED: PT OWN MED DRAWER 7, Y5N ONE (22:21)
[2020-09-12] MEDS: MIRTAZAPINE 15 MG TABLET (FP) PO SCH (22:22)
[2020-09-13] MEDS: FAT EMULSION/OLIVE/SOY/PHOSPHO 250 ML IV SCH ×2 (00:33→22:17)
[2020-09-13] MEDS: AMINO ACIDS 4.25%/D5W 1,000 ML IV SCH (03:14)
[2020-09-13] MEDS: INSULIN SLIDING SCALE (NOVOLOG) 1 VIAL SQ SCH ×2 (06:24→17:47)
[2020-09-13] MEDS ORDERED: PT OWN MED DRAWER 7, Y5N ONE (07:54)
[2020-09-13] MEDS: CYANOCOBALAMIN 1,000 MCG TABLET (FP) PO SCH (10:08)
[2020-09-13] MEDS: MEMANTINE HCL 10 MG TABLET (FP) PO SCH ×2 (10:08→21:35)
[2020-09-13] MEDS: PANTOPRAZOLE SODIUM 40 MG VIAL IVPUSH SCH (10:08)
[2020-09-13] MEDS: MIRTAZAPINE 15 MG TABLET (FP) PO SCH (21:35)
[2020-09-14] MEDS: AMINO ACIDS 4.25%/D5W 1,000 ML IV SCH
[2020-09-14] MEDS: INSULIN SLIDING SCALE (NOVOLOG) 1 VIAL SQ SCH ×2 (06:30→17:25)
[2020-09-14 07:42] LABS: BASO % 0.7 % (0-2.0); EOS % 2.1 % (0-4.5); HEMATOCRIT 27.1 % (32.4-45.2); HEMOGLOBIN 9.6 GM/dL (10.7-15.3); LYMPH % 13.1 % (8-40); MCH 34.7 pg (25.7-33.7); MCHC 35.5 g/dl (32.0-36.0); MEAN CELL VOLUME 97.8 fl (80-96); MEAN PLT VOLUME 6.8 fl (7.5-11.1); MONO % 9.5 % (3.8-10.2); NEUT % 74.6 % (42.8-82.8); PLATELET COUNT 454 K/MM3 (134-434); RBC 2.77 M/mm3 (3.60-5.2); RDW 14.6 % (11.6-15.6); WHITE BLOOD COUNT 7.9 K/mm3 (4.0-10.0)
[2020-09-14 07:49] LABS: POTASSIUM 3.6 mmol/L (3.5-5.1)
[2020-09-14 07:51] LABS: ALBUMIN 1.7 g/dl (3.4-5.0)
[2020-09-14 07:52] LABS: BLOOD UREA NITROGEN 24.1 mg/dL (7-18); MAGNESIUM 1.6 mg/dL (1.8-2.4)
[2020-09-14 07:55] LABS: CREATININE 0.5 mg/dL (0.55-1.3); PHOSPHOROUS 1.7 mg/dL (2.5-4.9)
[2020-09-14 07:56] LABS: BILIRUBIN,TOTAL 0.2 mg/dL (0.2-1); TOT PROT 5.4 g/dl (6.4-8.2)
[2020-09-14] MEDS ORDERED: MAGNESIUM SULF 50% (8.12 MEQ/2 ML-1 GM VIAL) IVPB ONE (09:15)
[2020-09-14] MEDS ORDERED: SODIUM PHOSPHATE - 30 MM in SODIUM CHLORIDE 500 ML IVPB ONE (10:00)
[2020-09-14] MEDS: PANTOPRAZOLE SODIUM 40 MG VIAL IVPUSH SCH (10:34)
[2020-09-14] MEDS: MEMANTINE HCL 10 MG TABLET (FP) PO SCH (10:34)
[2020-09-14] MEDS: CYANOCOBALAMIN 1,000 MCG TABLET (FP) PO SCH (10:34)
[2020-09-14 11:26] LABS: ANISOCYTOSIS 1+; MACROCYTOSIS 1+; PLATELET ESTIMATE NORMAL
[2020-09-14] MEDS: AMINO ACIDS/PROTEIN HYDROLYS 30 ML LIQUID.PKT PO SCH (17:25)
[2020-09-14] MEDS: MIRTAZAPINE 15 MG TABLET (FP) PO SCH (21:56)
[2020-09-14] MEDS: FAT EMULSION/OLIVE/SOY/PHOSPHO 250 ML IV SCH (21:56)
[2020-09-15] MEDS: MEMANTINE HCL 10 MG TABLET (FP) PO SCH ×3 (00:23→21:43)
[2020-09-15] MEDS: INSULIN SLIDING SCALE (NOVOLOG) 1 VIAL SQ SCH ×2 (06:17→17:13)
[2020-09-15 08:07] LABS: BASO % 0.7 % (0-2.0); EOS % 1.8 % (0-4.5); HEMATOCRIT 28.1 % (32.4-45.2); HEMOGLOBIN 9.9 GM/dL (10.7-15.3); MCH 34.4 pg (25.7-33.7); MCHC 35.1 g/dl (32.0-36.0); MEAN PLT VOLUME 6.7 fl (7.5-11.1); MONO % 9.7 % (3.8-10.2); NEUT % 78.8 % (42.8-82.8); PLATELET COUNT 455 K/MM3 (134-434); RBC 2.87 M/mm3 (3.60-5.2); RDW 14.4 % (11.6-15.6); WHITE BLOOD COUNT 8.7 K/mm3 (4.0-10.0)
[2020-09-15 08:32] LABS: POTASSIUM 3.3 mmol/L (3.5-5.1)
[2020-09-15 09:18] LABS: CALCIUM 9.2 mg/dL (8.5-10.1)
[2020-09-15 09:19] LABS: BLOOD UREA NITROGEN 25.9 mg/dL (7-18)
[2020-09-15 09:22] LABS: CREATININE 0.5 mg/dL (0.55-1.3); PHOSPHOROUS 2.3 mg/dL (2.5-4.9)
[2020-09-15 09:47] LABS: ANISOCYTOSIS 1+; MACROCYTOSIS 1+; PLATELET ESTIMATE NORMAL
[2020-09-15] MEDS ORDERED: PT OWN MED DRAWER 7, Y5N ONE (10:47)
[2020-09-15] MEDS: CYANOCOBALAMIN 1,000 MCG TABLET (FP) PO SCH (10:53)
[2020-09-15] MEDS: MULTIVIT-MINERALS ORAL LIQUID PO SCH (10:53)
[2020-09-15] MEDS: PANTOPRAZOLE SODIUM 40 MG VIAL IVPUSH SCH (10:54)
[2020-09-15] MEDS: AMINO ACIDS/PROTEIN HYDROLYS 30 ML LIQUID.PKT PO SCH ×2 (10:54→17:44)
[2020-09-15] MEDS: KCL 10 MEQ IVPB 10 MEQ/100 ML INFUS.BAG IVPB SCH ×3 (14:05→16:27)
[2020-09-15] MEDS: FAT EMULSION/OLIVE/SOY/PHOSPHO 250 ML IV SCH (21:42)
[2020-09-15] MEDS: MIRTAZAPINE 15 MG TABLET (FP) PO SCH (21:42)
[2020-09-16] MEDS: INSULIN SLIDING SCALE (NOVOLOG) 1 VIAL SQ SCH ×2 (06:20→16:25)
[2020-09-16 07:42] LABS: HEMATOCRIT 27.1 % (32.4-45.2); HEMOGLOBIN 9.6 GM/dL (10.7-15.3); MCH 34.8 pg (25.7-33.7); MCHC 35.5 g/dl (32.0-36.0); RBC 2.76 M/mm3 (3.60-5.2); RDW 15.3 % (11.6-15.6); WHITE BLOOD COUNT 10.6 K/mm3 (4.0-10.0)
[2020-09-16 07:43] LABS: BASO % 0.9 % (0-2.0); EOS % 1.4 % (0-4.5); LYMPH % 8.2 % (8-40); MEAN PLT VOLUME 6.9 fl (7.5-11.1); MONO % 11.2 % (3.8-10.2); NEUT % 78.3 % (42.8-82.8); PLATELET COUNT 484 K/MM3 (134-434)
[2020-09-16 08:11] LABS: POTASSIUM 3.9 mmol/L (3.5-5.1)
[2020-09-16 08:19] LABS: CALCIUM 10.5 mg/dL (8.5-10.1)
[2020-09-16 08:20] LABS: ALBUMIN 1.9 g/dl (3.4-5.0); BLOOD UREA NITROGEN 23.5 mg/dL (7-18)
[2020-09-16 08:22] LABS: CREATININE 0.5 mg/dL (0.55-1.3); PHOSPHOROUS 2.3 mg/dL (2.5-4.9)
[2020-09-16 08:24] LABS: BILIRUBIN,TOTAL 0.3 mg/dL (0.2-1); TOT PROT 5.5 g/dl (6.4-8.2)
[2020-09-16 10:22] LABS: ANISOCYTOSIS 1+; MACROCYTOSIS 1+; PLATELET ESTIMATE NORMAL
[2020-09-16] MEDS: MEMANTINE HCL 10 MG TABLET (FP) PO SCH ×2 (10:37→23:01)
[2020-09-16] MEDS: MULTIVIT-MINERALS ORAL LIQUID PO SCH (10:37)
[2020-09-16] MEDS: AMINO ACIDS/PROTEIN HYDROLYS 30 ML LIQUID.PKT PO SCH ×2 (10:37→18:15)
[2020-09-16] MEDS: PANTOPRAZOLE SODIUM 40 MG VIAL IVPUSH SCH (10:38)
[2020-09-16] MEDS: CYANOCOBALAMIN 1,000 MCG TABLET (FP) PO SCH (10:39)
[2020-09-16] MEDS: FAT EMULSION/OLIVE/SOY/PHOSPHO 250 ML IV SCH (23:01)
[2020-09-16] MEDS: MIRTAZAPINE 15 MG TABLET (FP) PO SCH (23:01)
[2020-09-17] MEDS: INSULIN SLIDING SCALE (NOVOLOG) 1 VIAL SQ SCH ×2 (07:21→18:07)
[2020-09-17] MEDS ORDERED: PT OWN MED DRAWER 7, Y5N ONE (10:24)
[2020-09-17] MEDS: PANTOPRAZOLE SODIUM 40 MG VIAL IVPUSH SCH (10:53)
[2020-09-17] MEDS: AMINO ACIDS/PROTEIN HYDROLYS 30 ML LIQUID.PKT PO SCH ×2 (10:53→18:08)
[2020-09-17] MEDS: CYANOCOBALAMIN 1,000 MCG TABLET (FP) PO SCH (10:53)
[2020-09-17] MEDS: MEMANTINE HCL 10 MG TABLET (FP) PO SCH ×2 (10:54→21:14)
[2020-09-17] MEDS: MULTIVIT-MINERALS ORAL LIQUID PO SCH (10:54)
[2020-09-17] MEDS: HEPARIN NA (PORCINE) 5,000 UNITS/ML 1ML VIAL SQ SCH ×2 (14:14→21:13)
[2020-09-17] MEDS: FAT EMULSION/OLIVE/SOY/PHOSPHO 250 ML IV SCH (21:14)
[2020-09-17] MEDS: MIRTAZAPINE 15 MG TABLET (FP) PO SCH (21:14)
[2020-09-18] MEDS: HEPARIN NA (PORCINE) 5,000 UNITS/ML 1ML VIAL SQ SCH ×3 (06:14→22:16)
[2020-09-18] MEDS: INSULIN SLIDING SCALE (NOVOLOG) 1 VIAL SQ SCH ×2 (06:14→16:53)
[2020-09-18 07:29] LABS: BASO % 1.1 % (0-2.0); EOS % 1.1 % (0-4.5); HEMATOCRIT 25.3 % (32.4-45.2); LYMPH % 11.3 % (8-40); MCH 34.7 pg (25.7-33.7); MCHC 35.4 g/dl (32.0-36.0); MEAN PLT VOLUME 6.9 fl (7.5-11.1); MONO % 14.8 % (3.8-10.2); NEUT % 71.7 % (42.8-82.8); PLATELET COUNT 504 K/MM3 (134-434); RBC 2.58 M/mm3 (3.60-5.2); RDW 14.7 % (11.6-15.6); WHITE BLOOD COUNT 9.3 K/mm3 (4.0-10.0)
[2020-09-18 08:11] LABS: POTASSIUM 3.6 mmol/L (3.5-5.1)
[2020-09-18 08:24] LABS: ALBUMIN 1.8 g/dl (3.4-5.0)
[2020-09-18 08:25] LABS: BLOOD UREA NITROGEN 24.8 mg/dL (7-18); MAGNESIUM 2.1 mg/dL (1.8-2.4)
[2020-09-18 08:27] LABS: PHOSPHOROUS 2.3 mg/dL (2.5-4.9)
[2020-09-18 08:28] LABS: CREATININE 0.5 mg/dL (0.55-1.3)
[2020-09-18 08:29] LABS: BILIRUBIN,TOTAL 0.4 mg/dL (0.2-1); TOT PROT 5.7 g/dl (6.4-8.2)
[2020-09-18] MEDS: MULTIVIT-MINERALS ORAL LIQUID PO SCH (09:46)
[2020-09-18] MEDS: CYANOCOBALAMIN 1,000 MCG TABLET (FP) PO SCH (09:46)
[2020-09-18] MEDS: MEMANTINE HCL 10 MG TABLET (FP) PO SCH ×2 (09:46→22:16)
[2020-09-18] MEDS: PANTOPRAZOLE SODIUM 40 MG VIAL IVPUSH SCH (09:46)
[2020-09-18] MEDS: AMINO ACIDS/PROTEIN HYDROLYS 30 ML LIQUID.PKT PO SCH ×2 (09:46→16:53)
[2020-09-18] MEDS: MIRTAZAPINE 15 MG TABLET (FP) PO SCH (22:16)
[2020-09-18] MEDS: FAT EMULSION/OLIVE/SOY/PHOSPHO 250 ML IV SCH (22:17)
[2020-09-19] MEDS: HEPARIN NA (PORCINE) 5,000 UNITS/ML 1ML VIAL SQ SCH ×2 (05:55→13:10)
[2020-09-19 06:13] VITALS: BP 148/86; PULSE 96; TEMP 98.6
[2020-09-19] MEDS: INSULIN SLIDING SCALE (NOVOLOG) 1 VIAL SQ SCH (06:33)
[2020-09-19] MEDS ORDERED: PT OWN MED DRAWER 7, Y5N ONE (10:20)
[2020-09-19] MEDS: AMINO ACIDS/PROTEIN HYDROLYS 30 ML LIQUID.PKT PO SCH (10:25)
[2020-09-19] MEDS: PANTOPRAZOLE SODIUM 40 MG VIAL IVPUSH SCH (10:25)
[2020-09-19] MEDS: MULTIVIT-MINERALS ORAL LIQUID PO SCH (10:26)
[2020-09-19] MEDS: CYANOCOBALAMIN 1,000 MCG TABLET (FP) PO SCH (10:26)
[2020-09-19] MEDS: MEMANTINE HCL 10 MG TABLET (FP) PO SCH (10:26)
== END 2020-09-19 13:57 | disposition short-term general hospital (02) | DRG 177 ==
LOC: JER 19:47 → JERBED 20:18 → J5WEST-2 08-29 11:32 → J6WEST-2 09-06 14:57 → J4W 09-06 17:30
PROVIDERS: ADMIT Internal Medicine; ATTEND Internal Medicine
DX: U07.1 COVID-19 (principal); R53.2 Functional quadriplegia; E43 Unspecified severe protein-calorie malnutrition; G93.41 Metabolic encephalopathy; J18.9 Pneumonia, unspecified organism; N17.9 Acute kidney failure, unspecified; J98.11 Atelectasis; R64 Cachexia; N39.0 Urinary tract infection, site not specified; E87.1 Hypo-osmolality and hyponatremia; F03.90 Unspecified dementia, unspecified severity, without behavioral disturbance, psychotic disturbance, mood disturbance, and anxiety; I10 Essential (primary) hypertension; K59.09 Other constipation; I95.9 Hypotension, unspecified; E21.3 Hyperparathyroidism, unspecified; E86.0 Dehydration; R41.82 Altered mental status, unspecified; R26.2 Difficulty in walking, not elsewhere classified; E83.52 Hypercalcemia; R53.1 Weakness; M62.81 Muscle weakness (generalized); Z68.26 Body mass index [BMI] 26.0-26.9, adult; E88.09 Other disorders of plasma-protein metabolism, not elsewhere classified; R50.9 Fever, unspecified; E83.42 Hypomagnesemia; E87.6 Hypokalemia; E83.39 Other disorders of phosphorus metabolism; G47.00 Insomnia, unspecified; D50.0 Iron deficiency anemia secondary to blood loss (chronic)
CPT/HCPCS: 36415; 71045-TC-FY; 71250-TC; 80048; 80053; 81003; 82728; 82962; 83540; 83550; 83735; 84100; 84484; 85025; 86769; 87040; 87086; 87899; 93005; 93010; 97161-GP; 99285-25; C9803; J1644; U0003